=== PATIENT | female | born 1940 | race Caucasian/White ===

== ENCOUNTER 2018-07-17 22:39 | Emergency (ER) | payer MEDICARE, MEDICAID ==
[~2018-07-17] VITALS: Ht 170.2 cm; Wt 81.6 kg
[~2018-07-17 22:39] MED LIST: CLIN1CAP4 PO; LEVO125T7 PO; SACC250C PO
[2018-07-17 23:00] VITALS: BP 104/62
== END 2018-07-18 06:06 | disposition home or self-care (01) ==
LOC: ER 22:42
DX: J20.9 Acute bronchitis, unspecified (principal); E11.22 Type 2 diabetes mellitus with diabetic chronic kidney disease; I12.9 Hypertensive chronic kidney disease with stage 1 through stage 4 chronic kidney disease, or unspecified chronic kidney disease; N18.9 Chronic kidney disease, unspecified; E78.5 Hyperlipidemia, unspecified; I25.2 Old myocardial infarction; Z86.711 Personal history of pulmonary embolism; Z86.39 Personal history of other endocrine, nutritional and metabolic disease
CPT/HCPCS: 71046

== ENCOUNTER 2019-07-01 15:49 | Emergency (ER) | payer MEDICARE, MEDICAID ==
[~2019-07-01] VITALS: Ht 170.2 cm; Wt 81.6 kg
[~2019-07-01 15:49] MED LIST changes: -CLIN1CAP4 PO; +CLIN300C8 PO
[2019-07-01 15:56] VITALS: BP 128/60
== END 2019-07-01 17:41 | disposition home or self-care (01) ==
LOC: EDBD 15:49 → ER 16:04
DX: M24.9 Joint derangement, unspecified (principal); M19.012 Primary osteoarthritis, left shoulder; I12.9 Hypertensive chronic kidney disease with stage 1 through stage 4 chronic kidney disease, or unspecified chronic kidney disease; E11.22 Type 2 diabetes mellitus with diabetic chronic kidney disease; N18.9 Chronic kidney disease, unspecified; I25.10 Atherosclerotic heart disease of native coronary artery without angina pectoris; E78.00 Pure hypercholesterolemia, unspecified; I25.2 Old myocardial infarction; Z79.2 Long term (current) use of antibiotics; Z79.899 Other long term (current) drug therapy; V49.9XXA Car occupant (driver) (passenger) injured in unspecified traffic accident, initial encounter; Y93.89 Activity, other specified; Y92.89 Other specified places as the place of occurrence of the external cause; Y99.8 Other external cause status
CPT/HCPCS: 73030

== ENCOUNTER 2019-07-05 14:35 | Emergency (ER) | payer MEDICARE, MEDICAID ==
[~2019-07-05] VITALS: Ht 170.2 cm; Wt 81.6 kg
[2019-07-05 15:16] VITALS: BP 127/67
[2019-07-05] MEDS ORDERED: traMADol HCL 50 MG TAB PO ONE (16:45)
== END 2019-07-05 17:08 | disposition home or self-care (01) ==
LOC: ER 14:35
DX: G89.29 Other chronic pain (principal); M25.512 Pain in left shoulder; Z76.0 Encounter for issue of repeat prescription; I12.9 Hypertensive chronic kidney disease with stage 1 through stage 4 chronic kidney disease, or unspecified chronic kidney disease; E11.22 Type 2 diabetes mellitus with diabetic chronic kidney disease; N18.9 Chronic kidney disease, unspecified; E78.5 Hyperlipidemia, unspecified; E07.9 Disorder of thyroid, unspecified; I25.10 Atherosclerotic heart disease of native coronary artery without angina pectoris

== ENCOUNTER 2020-02-09 14:34 | Inpatient (IN) | payer MEDICARE, MEDICAID ==
[~2020-02-09] VITALS: Ht 170.2 cm; Wt 80.8 kg
[2020-02-09 17:17] LABS: Basophils # (auto) 0 10 ^3/uL (0-0.2); Basophils % (auto) 0.5 % (0.0-2.0); Eosinophils # (auto) 0.3 10 ^3/uL (0-0.8); Eosinophils % (auto) 4.3 % (0.0-7.0); Hematocrit 41.8 % (36.0-46.0); Hemoglobin 13.7 g/dL (12.2-16.2); Lymphocytes # (auto) 1.8 10 ^3/uL (0.4-5.4); Lymphocytes % (auto) 24.1 % (10.0-50.0); Mean Corpuscular Hemoglobin 30.4 pg (28.0-32.0); Mean Corpuscular Hgb Conc. 32.8 g/dL (32.0-36.0); Mean Corpuscular Volume 92.8 fL (80.0-100.0); Monocytes # (auto) 0.7 10 ^3/uL (0-1.3); Monocytes % (auto) 10.1 % (0.0-12.0); Neutrophils # (auto) 4.5 10 ^3/uL (1.6-8.6); Platelet Count (auto) 118 10^3/uL (140-450); Red Blood Cells 4.51 10^6/uL (4.0-5.20); Red Cell Distribution Width 13.2 % (11.8-14.3); White Blood Cell 7.4 10^3/uL (4.4-10.8)
[2020-02-09 17:33] LABS: BUN/Creatinine Ratio 15.2; Calcium 9.6 mg/dL (8.5-10.1); Potassium 3.4 mmol/L (3.5-5.1)
[2020-02-09 17:35] LABS: Bilirubin, Total 1.3 mg/dL (0.2-1.0); Total Protein 7.6 g/dL (6.4-8.2)
[2020-02-09] MEDS ORDERED: HEPARIN SODIUM (PORCINE) 5000 UNITS/ML 1ML VIAL IV ONE (17:45)
[2020-02-09] MEDS ORDERED: DOCUSATE SOD 100 MG CAP PO PRN ×2 (20:30→23:30)
[2020-02-09] MEDS ORDERED: ACETAMINOPHEN 325 MG TAB PO PRN ×2 (20:30→23:30)
[2020-02-09] MEDS ORDERED: ONDANSETRON HCL 4 MG/2 ML VIAL IV PRN ×2 (20:30→23:30)
[2020-02-09] MEDS ORDERED: HYDROcodone-ACET 5/325MG TAB PO PRN ×2 (20:30→23:30)
[2020-02-09] MEDS ORDERED: MORPHINE SULF INJ 2 MG/ML SYRINGE 1ML IV PRN ×2 (20:30→23:30)
[2020-02-09] MEDS ORDERED: DEXTROSE (50%) 50ML SYRG IV PRN ×2 (20:30→23:30)
[2020-02-09 20:42] LABS: Urine Amorphous Crystal FEW /hpf (None Seen); Urine Bacteria FEW /hpf (None Seen); Urine Blood Negative /uL (Negative); Urine Specific Gravity 1.012 (1.001-1.035); Urine WBC 4 /hpf (0 - 5)
[2020-02-09] MEDS ORDERED: APIXABAN 5 MG TAB PO SCH (22:00)
[2020-02-10] MEDS ORDERED: InsuLIN REG 1unit/0.01ml Soln (100units/ml) SC SCH
[2020-02-10] MEDS ORDERED: ACCU-CHEK COMFORT CURVE STRIP VI SCH
[2020-02-10] MEDS: ACCU-CHEK COMFORT CURVE STRIP VI SCH ×4 (00:10→11:51)
[2020-02-10] MEDS: APIXABAN 5 MG TAB PO SCH ×2 (00:10→09:53)
[2020-02-10] MEDS ORDERED: MULTLIQ38 OR (00:28)
[2020-02-10] MEDS ORDERED: LOVA40TA72 PO (00:28)
[2020-02-10] MEDS: InsuLIN REG 1unit/0.01ml Soln (100units/ml) SC SCH ×6 (03:43→20:00)
[2020-02-10 04:40] VITALS: BP 135/55
[2020-02-10] MEDS: LEVOTHYROXINE SODIUM 50 MCG TAB PO SCH (06:36)
[2020-02-10] MEDS ORDERED: LEVOTHYROXINE SODIUM 50 MCG TAB PO SCH (07:00)
[2020-02-10 10:14] VITALS: BP 112/52
[2020-02-10] MEDS ORDERED: CYCLOBENZAPRINE HCL 10 MG TAB PO PRN (12:00)
[2020-02-10 12:39] VITALS: BP 116/76
[2020-02-10] MEDS ORDERED: IOHEXOL 350 MG/ML 100ML IJ ONE (12:42)
[2020-02-10 17:00] VITALS: BP 126/70
[2020-02-10 22:00] VITALS: BP 132/64
[2020-02-10] MEDS: ENOXAPARIN SOD 80 MG/0.8ML SYRINGE SC SCH (22:11)
[2020-02-11] MEDS: InsuLIN REG 1unit/0.01ml Soln (100units/ml) SC SCH ×6 (04:00→20:15)
[2020-02-11 05:00] VITALS: BP 137/71
[2020-02-11] MEDS: LEVOTHYROXINE SODIUM 50 MCG TAB PO SCH (05:51)
[2020-02-11 09:18] VITALS: BP 126/64
[2020-02-11] MEDS: ENOXAPARIN SOD 80 MG/0.8ML SYRINGE SC SCH ×2 (09:48→22:01)
[2020-02-11 12:53] VITALS: BP 107/58
[2020-02-11 16:23] LABS: INR 1.05 (0.9-1.15); Partial Thromboplastin Time 36.9 sec (23.0-31.2)
[2020-02-11 17:00] VITALS: BP 114/59
[2020-02-11 20:00] VITALS: BP 130/71
[2020-02-11 22:43] VITALS: BP_SYST 130; BP_DIAS 7; BP_DIAS 71
[2020-02-12] MEDS: InsuLIN REG 1unit/0.01ml Soln (100units/ml) SC SCH ×2 (04:00)
[2020-02-12 05:00] VITALS: BP 128/59
[2020-02-12 05:22] VITALS: BP 128/59
[2020-02-12] MEDS: LEVOTHYROXINE SODIUM 50 MCG TAB PO SCH (06:32)
[2020-02-12 08:30] VITALS: BP 113/62
[2020-02-12] MEDS: ENOXAPARIN SOD 80 MG/0.8ML SYRINGE SC SCH ×2 (09:35→21:59)
[2020-02-12] MEDS ORDERED: LIDOCAINE 2%HCL (LOCAL ANESTH.) INJ 20ML MDV ONE (12:58)
[2020-02-12 13:00] VITALS: BP 118/59
[2020-02-12] MEDS ORDERED: fentaNYL CITRATE 100 MCG/2 ML VL ONE (13:08)
[2020-02-12] MEDS ORDERED: MIDAZOLAM HCL 1MG/1ML-2 ML VIAL ONE (13:08)
[2020-02-12 16:09] VITALS: BP 113/61
[2020-02-12 22:00] VITALS: BP 124/71
[2020-02-13 05:00] VITALS: BP 112/51
[2020-02-13] MEDS: LEVOTHYROXINE SODIUM 50 MCG TAB PO SCH (07:44)
[2020-02-13 08:00] VITALS: BP 109/59
[2020-02-13 09:00] VITALS: BP 109/59
[2020-02-13] MEDS: ENOXAPARIN SOD 80 MG/0.8ML SYRINGE SC SCH ×2 (09:41→21:50)
[2020-02-13 13:00] VITALS: BP 123/72
[2020-02-13 16:50] VITALS: BP 120/69
[2020-02-13 22:15] VITALS: BP 111/62
[2020-02-14 05:13] VITALS: BP 111/54
[2020-02-14] MEDS: LEVOTHYROXINE SODIUM 50 MCG TAB PO SCH (06:39)
[2020-02-14 08:00] VITALS: BP 113/60
[2020-02-14 08:31] VITALS: BP 113/60
[2020-02-14] MEDS ORDERED: APIXABAN 5 MG TAB PO ONE (11:00)
[2020-02-14 12:17] VITALS: BP 111/64
[2020-02-14 12:32] VITALS: BP 111/64
[2020-02-15] MEDS ORDERED: APIXABAN 5 MG TAB PO SCH (22:00)
[2020-02-16] MEDS ORDERED: APIXABAN 5 MG TAB PO SCH (22:00)
== END 2020-02-14 15:35 | disposition home or self-care (01) | DRG 252 ==
LOC: ER 14:34 → OVERFLOW 14:35 → ER 21:37 → CENTRAL 21:42
PROVIDERS: ADMIT Hospitalist; ATTEND Family Medicine
PROC: 06H03DZ Insertion of Intraluminal Device into Inferior Vena Cava, Percutaneous Approach (ICD-10-PCS; principal; 2020-02-12)
DX: I82.412 Acute embolism and thrombosis of left femoral vein (principal); I26.99 Other pulmonary embolism without acute cor pulmonale; D68.59 Other primary thrombophilia; J98.11 Atelectasis; M48.54XA Collapsed vertebra, not elsewhere classified, thoracic region, initial encounter for fracture; I25.10 Atherosclerotic heart disease of native coronary artery without angina pectoris; M54.5 Low back pain; E03.9 Hypothyroidism, unspecified; E87.6 Hypokalemia; E78.00 Pure hypercholesterolemia, unspecified; E78.5 Hyperlipidemia, unspecified; G89.29 Other chronic pain; Z86.711 Personal history of pulmonary embolism; Z86.718 Personal history of other venous thrombosis and embolism; W18.30XA Fall on same level, unspecified, initial encounter; Y93.89 Activity, other specified; Y92.89 Other specified places as the place of occurrence of the external cause; Y99.0 Civilian activity done for income or pay; I10 Essential (primary) hypertension
CPT/HCPCS: 36415; 71045; 71275; 72131; 80053; 81001; 82962; 85025; 85610; 85730; 86850; 86900; 86901; 93005; 93970; 96374; 99152; G0378; J1815; J2250

== ENCOUNTER 2020-02-28 23:33 | Emergency (ER) | payer MEDICARE, MEDICAID ==
[~2020-02-28] VITALS: Ht 170.2 cm; Wt 80.3 kg
[~2020-02-28 23:33] MED LIST changes: +LOVA40TA72 PO; +MULTLIQ38 OR
[2020-02-29 00:17] LABS: Basophils # (auto) 0 10 ^3/uL (0-0.2); Basophils % (auto) 0.4 % (0.0-2.0); Eosinophils # (auto) 0.2 10 ^3/uL (0-0.8); Eosinophils % (auto) 3.5 % (0.0-7.0); Hematocrit 40.8 % (36.0-46.0); Hemoglobin 13.6 g/dL (12.2-16.2); Lymphocytes # (auto) 1.8 10 ^3/uL (0.4-5.4); Lymphocytes % (auto) 30.6 % (10.0-50.0); Mean Corpuscular Hemoglobin 30.5 pg (28.0-32.0); Mean Corpuscular Hgb Conc. 33.4 g/dL (32.0-36.0); Mean Corpuscular Volume 91.4 fL (80.0-100.0); Monocytes # (auto) 0.6 10 ^3/uL (0-1.3); Neutrophils # (auto) 3.3 10 ^3/uL (1.6-8.6); Neutrophils % (auto) 55.5 % (37.0-80.0); Nucleated Red Blood Cells % 0.1 %; Platelet Count (auto) 159 10^3/uL (140-450); Red Blood Cells 4.46 10^6/uL (4.0-5.20); Red Cell Distribution Width 13.2 % (11.8-14.3)
[2020-02-29 00:34] LABS: INR 1.08 (0.9-1.15); Partial Thromboplastin Time 29.9 sec (23.0-31.2)
[2020-02-29 00:35] LABS: Alanine Aminotransferase 19 U/L (13-56); Albumin 3.1 g/dL (3.4-5.0); Anion Gap 5 (5-15); Aspartate Aminotransferase 15 U/L (15-37); BUN/Creatinine Ratio 20.3; Blood Urea Nitrogen 16 mg/dL (7-18); Calcium 9.3 mg/dL (8.5-10.1); Carbon Dioxide 27 mmol/L (21-32); Chloride 107 mmol/L (98-107); GFR African American 91 mL/min; GFR Non-African American 75 mL/min; Glucose 103 mg/dL (74-106); Magnesium 1.8 mg/dL (1.6-2.6); Potassium 3.7 mmol/L (3.5-5.1); Sodium 139 mmol/L (136-145)
[2020-02-29 00:40] LABS: Alkaline Phosphatase 98 U/L (45-117); Bilirubin, Total 0.6 mg/dL (0.2-1.0); Total Protein 7.6 g/dL (6.4-8.2)
[2020-02-29 02:31] LABS: Urine Bacteria FEW /hpf (None Seen); Urine Blood Negative /uL (Negative); Urine Specific Gravity 1.013 (1.001-1.035); Urine WBC <1 /hpf (0 - 5)
[2020-02-29 03:00] VITALS: BP 117/51
== END 2020-02-29 04:10 | disposition home or self-care (01) ==
LOC: ER 23:34
DX: R42 Dizziness and giddiness (principal); I25.10 Atherosclerotic heart disease of native coronary artery without angina pectoris; I13.10 Hypertensive heart and chronic kidney disease without heart failure, with stage 1 through stage 4 chronic kidney disease, or unspecified chronic kidney disease; E11.22 Type 2 diabetes mellitus with diabetic chronic kidney disease; N18.9 Chronic kidney disease, unspecified; E78.5 Hyperlipidemia, unspecified; Z79.899 Other long term (current) drug therapy
CPT/HCPCS: 36415; 71045; 80053; 81001; 83735; 83880; 84443; 84484; 85025; 85379; 85610; 85730; 93005

== ENCOUNTER 2020-03-19 21:35 | Emergency (ER) | payer MEDICARE, MEDICAID ==
[~2020-03-19] VITALS: Ht 170.2 cm; Wt 80.3 kg
[2020-03-19] MEDS ORDERED: ONDANSETRON HCL 4 MG/2 ML VIAL IV ONE (23:00)
[2020-03-19] MEDS ORDERED: HYDROmorphone HCL 2 MG/ML VL IV ONE (23:00)
[2020-03-19 23:02] LABS: Basophils # (auto) 0 10 ^3/uL (0-0.2); Basophils % (auto) 0.7 % (0.0-2.0); Eosinophils # (auto) 0.1 10 ^3/uL (0-0.8); Eosinophils % (auto) 2.1 % (0.0-7.0); Hematocrit 41.8 % (36.0-46.0); Lymphocytes # (auto) 1.4 10 ^3/uL (0.4-5.4); Lymphocytes % (auto) 22.3 % (10.0-50.0); Mean Corpuscular Hemoglobin 30.7 pg (28.0-32.0); Mean Corpuscular Hgb Conc. 33.5 g/dL (32.0-36.0); Mean Corpuscular Volume 91.6 fL (80.0-100.0); Monocytes # (auto) 0.6 10 ^3/uL (0-1.3); Monocytes % (auto) 8.9 % (0.0-12.0); Neutrophils # (auto) 4.3 10 ^3/uL (1.6-8.6); Nucleated Red Blood Cells % 0.1 %; Platelet Count (auto) 148 10^3/uL (140-450); Red Blood Cells 4.56 10^6/uL (4.0-5.20); Red Cell Distribution Width 13.6 % (11.8-14.3); White Blood Cell 6.5 10^3/uL (4.4-10.8)
[2020-03-19] MEDS ORDERED: IOHEXOL 350 MG/ML 100ML IJ ONE (23:03)
[2020-03-19 23:18] LABS: INR 1.06 (0.9-1.15); Partial Thromboplastin Time 27.9 sec (23.0-31.2)
[2020-03-19 23:21] LABS: Albumin 3.2 g/dL (3.4-5.0); BUN/Creatinine Ratio 22.3; Calcium 9.6 mg/dL (8.5-10.1); Potassium 3.8 mmol/L (3.5-5.1)
[2020-03-19 23:24] LABS: Bilirubin, Total 0.7 mg/dL (0.2-1.0); Total Protein 7.4 g/dL (6.4-8.2)
[2020-03-20 00:06] LABS: Urine Bacteria FEW /hpf (None Seen); Urine Blood Negative /uL (Negative); Urine Specific Gravity 1.016 (1.001-1.035); Urine WBC 54 /hpf (0 - 5)
[2020-03-20] MEDS ORDERED: SODIUM CHLORIDE 0.9% 1,000 ML IV ONE (03:45)
[2020-03-20] MEDS ORDERED: CEFTRIAXONE SODIUM 2 GM in D5W 5% 50 ML IV ONE (03:45)
[2020-03-20] MEDS ORDERED: cefTRIAXone 1GM/50ML D5W 50 ML IV ONE (03:50)
[2020-03-20 04:50] VITALS: BP 105/45
== END 2020-03-20 05:19 | disposition home or self-care (01) ==
LOC: ER 21:35
DX: N12 Tubulo-interstitial nephritis, not specified as acute or chronic (principal); E11.22 Type 2 diabetes mellitus with diabetic chronic kidney disease; I12.9 Hypertensive chronic kidney disease with stage 1 through stage 4 chronic kidney disease, or unspecified chronic kidney disease; N18.9 Chronic kidney disease, unspecified; I25.10 Atherosclerotic heart disease of native coronary artery without angina pectoris; E78.5 Hyperlipidemia, unspecified; Z86.711 Personal history of pulmonary embolism; Z79.899 Other long term (current) drug therapy; Z79.01 Long term (current) use of anticoagulants
CPT/HCPCS: 36415; 71045; 71275; 80053; 81001; 85025; 85379; 85610; 85730; 93005; 96365; 96375; 99285; J0696; J1170; J2405; J7060; Q9967

== ENCOUNTER 2020-03-23 01:00 | Emergency (ER) | payer MEDICARE, MEDICAID ==
[~2020-03-23] VITALS: Ht 170.2 cm; Wt 80.3 kg
[2020-03-23 01:17] VITALS: BP 127/61
[2020-03-23 02:16] LABS: Basophils # (auto) 0.1 10 ^3/uL (0-0.2); Basophils % (auto) 2.4 % (0.0-2.0); Eosinophils # (auto) 0.2 10 ^3/uL (0-0.8); Eosinophils % (auto) 4.1 % (0.0-7.0); Hematocrit 42.7 % (36.0-46.0); Hemoglobin 14.4 g/dL (12.2-16.2); Lymphocytes # (auto) 1.8 10 ^3/uL (0.4-5.4); Lymphocytes % (auto) 32.8 % (10.0-50.0); Mean Corpuscular Hemoglobin 30.7 pg (28.0-32.0); Mean Corpuscular Hgb Conc. 33.7 g/dL (32.0-36.0); Monocytes # (auto) 0.4 10 ^3/uL (0-1.3); Monocytes % (auto) 6.5 % (0.0-12.0); Neutrophils % (auto) 54.2 % (37.0-80.0); Nucleated Red Blood Cells % 0.2 %; Platelet Count (auto) 169 10^3/uL (140-450); Red Blood Cells 4.69 10^6/uL (4.0-5.20); Red Cell Distribution Width 13.4 % (11.8-14.3); White Blood Cell 5.5 10^3/uL (4.4-10.8)
[2020-03-23 02:38] LABS: Albumin 3.1 g/dL (3.4-5.0); Amylase 81 U/L (25-115); Anion Gap 4 (5-15); Blood Urea Nitrogen 19 mg/dL (7-18); Calcium 9.4 mg/dL (8.5-10.1); Carbon Dioxide 28 mmol/L (21-32); Chloride 106 mmol/L (98-107); Glucose 96 mg/dL (74-106); Lipase 102 U/L (73-393); Magnesium 2.2 mg/dL (1.6-2.6); Potassium 3.9 mmol/L (3.5-5.1); Sodium 138 mmol/L (136-145)
[2020-03-23 02:44] LABS: Alanine Aminotransferase 19 U/L (13-56); Alkaline Phosphatase 92 U/L (45-117); Aspartate Aminotransferase 16 U/L (15-37); Bilirubin, Total 0.5 mg/dL (0.2-1.0); GFR African American 99 mL/min; GFR Non-African American 82 mL/min; Total Protein 7.5 g/dL (6.4-8.2)
[2020-03-23 04:50] LABS: Urine Bacteria NONE SEEN /hpf (None Seen); Urine Blood Negative /uL (Negative); Urine Specific Gravity 1.012 (1.001-1.035); Urine WBC 2 /hpf (0 - 5)
== END 2020-03-23 05:45 | disposition home or self-care (01) ==
LOC: ER 01:03
DX: M54.16 Radiculopathy, lumbar region (principal); M79.18 Myalgia, other site; E11.22 Type 2 diabetes mellitus with diabetic chronic kidney disease; I12.9 Hypertensive chronic kidney disease with stage 1 through stage 4 chronic kidney disease, or unspecified chronic kidney disease; N18.9 Chronic kidney disease, unspecified; I25.10 Atherosclerotic heart disease of native coronary artery without angina pectoris; E78.00 Pure hypercholesterolemia, unspecified; Z87.440 Personal history of urinary (tract) infections; Z79.899 Other long term (current) drug therapy; Z86.711 Personal history of pulmonary embolism
CPT/HCPCS: 36415; 74176; 80053; 81001; 82150; 83605; 83690; 83735; 84484; 85025; 87040

== ENCOUNTER → 2020-07-10 | Outpatient (CLI) | payer MEDICARE, MEDICAID ==
[~2020-07-10] MED LIST changes: +APIX5TAB PO; +CALCTAB62 PO; +CHOL20007 PO; +DENO60SO SC; +LATA0.0019 RIGHTEYE; +LEVO100T8 PO; +ZINC13CR EX
== END | disposition home or self-care (01) ==
LOC: Rad HDHVI 13:15
PROVIDERS: ATTEND Internal Medicine Cardiovascular Disease
DX: R00.2 Palpitations (principal); R06.02 Shortness of breath
CPT/HCPCS: 93306

== ENCOUNTER 2020-07-26 02:54 | Inpatient (IN) | payer MEDICARE, MEDICAID ==
[~2020-07-26] VITALS: Ht 170.2 cm; Wt 84.2 kg
[~2020-07-26 02:54] MED LIST changes: -APIX5TAB PO; -CALCTAB62 PO; -CHOL20007 PO; -DENO60SO SC; -LATA0.0019 RIGHTEYE; -LEVO100T8 PO; -ZINC13CR EX
[2020-07-26 04:14] LABS: Basophils # (auto) 0 10 ^3/uL (0-0.2); Basophils % (auto) 0.4 % (0.0-2.0); Eosinophils # (auto) 0.4 10 ^3/uL (0-0.8); Hematocrit 41.5 % (36.0-46.0); Hemoglobin 14.4 g/dL (12.2-16.2); Lymphocytes # (auto) 2.1 10 ^3/uL (0.4-5.4); Lymphocytes % (auto) 37.4 % (10.0-50.0); Mean Corpuscular Hemoglobin 32.1 pg (28.0-32.0); Mean Corpuscular Hgb Conc. 34.7 g/dL (32.0-36.0); Mean Corpuscular Volume 92.5 fL (80.0-100.0); Monocytes # (auto) 0.5 10 ^3/uL (0-1.3); Monocytes % (auto) 9.6 % (0.0-12.0); Neutrophils # (auto) 2.6 10 ^3/uL (1.6-8.6); Neutrophils % (auto) 45.6 % (37.0-80.0); Nucleated Red Blood Cells % 0.1 %; Red Blood Cells 4.49 10^6/uL (4.0-5.20); Red Cell Distribution Width 14.2 % (11.8-14.3); White Blood Cell 5.6 10^3/uL (4.4-10.8)
[2020-07-26 04:37] LABS: Alanine Aminotransferase 17 U/L (13-56); Albumin 3.1 g/dL (3.4-5.0); Anion Gap 7 (5-15); Aspartate Aminotransferase 16 U/L (15-37); BUN/Creatinine Ratio 23.8; Blood Urea Nitrogen 19 mg/dL (7-18); Calcium 9.2 mg/dL (8.5-10.1); Carbon Dioxide 25 mmol/L (21-32); Chloride 107 mmol/L (98-107); GFR African American 89 mL/min; GFR Non-African American 74 mL/min; Glucose 101 mg/dL (74-106); Magnesium 1.9 mg/dL (1.6-2.6); Potassium 4.4 mmol/L (3.5-5.1); Sodium 139 mmol/L (136-145)
[2020-07-26 04:42] LABS: Alkaline Phosphatase 79 U/L (45-117); Bilirubin, Total 0.5 mg/dL (0.2-1.0)
[2020-07-26 04:46] LABS: Urine Bacteria FEW /hpf (None Seen); Urine Blood Negative /uL (Negative); Urine WBC <1 /hpf (0 - 5)
[2020-07-26 04:52] LABS: INR 1.08 (0.9-1.15); Partial Thromboplastin Time 31.7 sec (23.0-31.2)
[2020-07-26] MEDS ORDERED: MORPHINE SULFATE INJECTION 2 MG/ML SYRG IV PRN (06:45)
[2020-07-26] MEDS ORDERED: MORPHINE SULFATE 4 MG/ML SYR/VIAL IV PRN (06:45)
[2020-07-26] MEDS ORDERED: HYDROcodone-ACET 5/325MG TAB PO PRN (06:45)
[2020-07-26] MEDS ORDERED: NITROGLYCERIN 0.4 MG SL TAB SL PRN (06:45)
[2020-07-26] MEDS ORDERED: DOCUSATE SOD 100 MG CAP PO PRN (06:45)
[2020-07-26] MEDS ORDERED: ACETAMINOPHEN 325 MG TAB PO PRN (06:45)
[2020-07-26] MEDS: LEVOTHYROXINE SODIUM 50 MCG TAB PO SCH (08:10)
[2020-07-26 09:34] LABS: Basophils # (auto) 0 10 ^3/uL (0-0.2); Basophils % (auto) 0.9 % (0.0-2.0); Eosinophils # (auto) 0.4 10 ^3/uL (0-0.8); Eosinophils % (auto) 6.8 % (0.0-7.0); Hematocrit 42.6 % (36.0-46.0); Hemoglobin 14.4 g/dL (12.2-16.2); Lymphocytes % (auto) 38.9 % (10.0-50.0); Mean Corpuscular Hemoglobin 31.3 pg (28.0-32.0); Mean Corpuscular Hgb Conc. 33.8 g/dL (32.0-36.0); Mean Corpuscular Volume 92.5 fL (80.0-100.0); Monocytes # (auto) 0.4 10 ^3/uL (0-1.3); Monocytes % (auto) 8.4 % (0.0-12.0); Neutrophils # (auto) 2.3 10 ^3/uL (1.6-8.6); Nucleated Red Blood Cells % 0.1 %; Red Cell Distribution Width 14.4 % (11.8-14.3); White Blood Cell 5.2 10^3/uL (4.4-10.8)
[2020-07-26] MEDS ORDERED: ENOXAPARIN SOD 40 MG/0.4 ML SYRINGE SC SCH (10:00)
[2020-07-26 10:01] LABS: Cholesterol 181 mg/dL (< 200)
[2020-07-26 10:02] LABS: Albumin 3.3 g/dL (3.4-5.0); Calcium 8.7 mg/dL (8.5-10.1); Potassium 4.2 mmol/L (3.5-5.1)
[2020-07-26 10:04] LABS: HDL Cholesterol 61 mg/dL (40-59); LDL Cholesterol 113 mg/dL (< 100); Triglycerides 63 mg/dL (< 150)
[2020-07-26 10:05] LABS: BUN/Creatinine Ratio 26.5; Bilirubin, Total 0.9 mg/dL (0.2-1.0); Total Protein 7.5 g/dL (6.4-8.2)
[2020-07-26 10:30] VITALS: BP 155/75
[2020-07-26] MEDS: ASCORBIC ACID 500 MG TAB PO SCH ×2 (10:43→22:12)
[2020-07-26] MEDS: FAMOTIDINE (10MG/ML) 2ML VL IV SCH ×2 (10:43→22:12)
[2020-07-26] MEDS: MULTIPLE VITAMIN TAB PO SCH (10:43)
[2020-07-26] MEDS ORDERED: cefTRIAXone 1GM/50ML D5W 50 ML IV ONE (12:15)
[2020-07-26] MEDS ORDERED: APIX5TAB PO (12:15)
[2020-07-26] MEDS: SODIUM CHLOR 0.9% PF (SALINE LOCK) 10ML VIAL/SYR IV SCH ×2 (14:00→22:12)
[2020-07-26 15:28] VITALS: BP 131/66
[2020-07-26 16:29] LABS: Free T4 (Free Thyroxine) 1.22 ng/dL (0.89-1.76)
[2020-07-26 16:30] LABS: Free T3 3.11 pg/mL (2.3-4.2)
[2020-07-26] MEDS ORDERED: LEVO100T8 PO (16:38)
[2020-07-26] MEDS ORDERED: CALCTAB62 PO (16:44)
[2020-07-26] MEDS ORDERED: LATA0.0019 RIGHTEYE (16:45)
[2020-07-26] MEDS ORDERED: DENO60SO SC (16:46)
[2020-07-26] MEDS ORDERED: CHOL20007 PO (16:47)
[2020-07-26] MEDS ORDERED: ZINC13CR EX (16:50)
[2020-07-26 22:00] VITALS: BP 115/60
[2020-07-26] MEDS: APIXABAN 5 MG TAB PO SCH (22:12)
[2020-07-27 05:00] VITALS: BP 101/69
[2020-07-27] MEDS: LEVOTHYROXINE SODIUM 50 MCG TAB PO SCH (06:37)
[2020-07-27] MEDS: SODIUM CHLOR 0.9% PF (SALINE LOCK) 10ML VIAL/SYR IV SCH ×3 (06:37→22:12)
[2020-07-27 06:38] LABS: Basophils # (auto) 0 10 ^3/uL (0-0.2); Basophils % (auto) 0.6 % (0.0-2.0); Eosinophils # (auto) 0.3 10 ^3/uL (0-0.8); Eosinophils % (auto) 6.4 % (0.0-7.0); Hematocrit 41.9 % (36.0-46.0); Hemoglobin 14.4 g/dL (12.2-16.2); Lymphocytes # (auto) 1.8 10 ^3/uL (0.4-5.4); Lymphocytes % (auto) 37.4 % (10.0-50.0); Mean Corpuscular Hemoglobin 31.6 pg (28.0-32.0); Mean Corpuscular Hgb Conc. 34.3 g/dL (32.0-36.0); Mean Corpuscular Volume 92.3 fL (80.0-100.0); Monocytes # (auto) 0.5 10 ^3/uL (0-1.3); Monocytes % (auto) 10.1 % (0.0-12.0); Neutrophils # (auto) 2.2 10 ^3/uL (1.6-8.6); Neutrophils % (auto) 45.5 % (37.0-80.0); Nucleated Red Blood Cells % 0.1 %; Red Blood Cells 4.54 10^6/uL (4.0-5.20); Red Cell Distribution Width 14.3 % (11.8-14.3); White Blood Cell 4.9 10^3/uL (4.4-10.8)
[2020-07-27 06:57] LABS: Albumin 3.2 g/dL (3.4-5.0); BUN/Creatinine Ratio 28.9; Calcium 8.6 mg/dL (8.5-10.1); Potassium 4.2 mmol/L (3.5-5.1)
[2020-07-27 07:00] LABS: Bilirubin, Total 1.1 mg/dL (0.2-1.0); Total Protein 7.1 g/dL (6.4-8.2)
[2020-07-27 08:00] VITALS: BP 129/72
[2020-07-27] MEDS: ASCORBIC ACID 500 MG TAB PO SCH ×2 (09:48→22:12)
[2020-07-27] MEDS: cefTRIAXone 1GM/50ML D5W 50 ML IV SCH (09:48)
[2020-07-27] MEDS: APIXABAN 5 MG TAB PO SCH ×2 (09:48→22:12)
[2020-07-27] MEDS: MULTIPLE VITAMIN TAB PO SCH (09:48)
[2020-07-27] MEDS: FAMOTIDINE (10MG/ML) 2ML VL IV SCH ×2 (09:48→22:12)
[2020-07-27 16:32] VITALS: BP 112/59
[2020-07-27 22:00] VITALS: BP 120/52
[2020-07-27] MEDS ORDERED: LATANOPROST 0.005 % OPTH(EYE) SOL 2.5ML RIGHTEYE SCH (22:00)
[2020-07-27] MEDS: LATANOPROST 0.005 % OPTH(EYE) SOL 2.5ML RIGHTEYE SCH (22:12)
[2020-07-28 05:00] VITALS: BP 117/60
[2020-07-28 07:04] LABS: Basophils # (auto) 0 10 ^3/uL (0-0.2); Basophils % (auto) 0.5 % (0.0-2.0); Eosinophils # (auto) 0.3 10 ^3/uL (0-0.8); Eosinophils % (auto) 6.1 % (0.0-7.0); Hemoglobin 14.8 g/dL (12.2-16.2); Lymphocytes # (auto) 1.9 10 ^3/uL (0.4-5.4); Lymphocytes % (auto) 40.2 % (10.0-50.0); Mean Corpuscular Hemoglobin 31.6 pg (28.0-32.0); Mean Corpuscular Hgb Conc. 34.5 g/dL (32.0-36.0); Mean Corpuscular Volume 91.8 fL (80.0-100.0); Monocytes # (auto) 0.5 10 ^3/uL (0-1.3); Monocytes % (auto) 9.9 % (0.0-12.0); Neutrophils # (auto) 2.1 10 ^3/uL (1.6-8.6); Neutrophils % (auto) 43.3 % (37.0-80.0); Red Blood Cells 4.68 10^6/uL (4.0-5.20); Red Cell Distribution Width 14.4 % (11.8-14.3); White Blood Cell 4.8 10^3/uL (4.4-10.8)
[2020-07-28] MEDS: LEVOTHYROXINE SODIUM 50 MCG TAB PO SCH (07:14)
[2020-07-28] MEDS: SODIUM CHLOR 0.9% PF (SALINE LOCK) 10ML VIAL/SYR IV SCH ×3 (07:14→22:24)
[2020-07-28 07:19] LABS: Potassium 4.3 mmol/L (3.5-5.1)
[2020-07-28 08:00] VITALS: BP 111/61
[2020-07-28] MEDS: MULTIPLE VITAMIN TAB PO SCH (09:25)
[2020-07-28] MEDS: ASCORBIC ACID 500 MG TAB PO SCH ×2 (09:25→22:11)
[2020-07-28] MEDS: cefTRIAXone 1GM/50ML D5W 50 ML IV SCH (09:25)
[2020-07-28] MEDS: FAMOTIDINE (10MG/ML) 2ML VL IV SCH ×2 (09:25→22:11)
[2020-07-28] MEDS: APIXABAN 5 MG TAB PO SCH ×2 (09:25→22:11)
[2020-07-28 16:00] VITALS: BP 144/60
[2020-07-28 22:00] VITALS: BP 112/57
[2020-07-28] MEDS: LATANOPROST 0.005 % OPTH(EYE) SOL 2.5ML RIGHTEYE SCH (22:11)
[2020-07-29 05:00] VITALS: BP 114/67
[2020-07-29] MEDS: SODIUM CHLOR 0.9% PF (SALINE LOCK) 10ML VIAL/SYR IV SCH ×3 (05:19→21:56)
[2020-07-29] MEDS: LEVOTHYROXINE SODIUM 50 MCG TAB PO SCH (06:30)
[2020-07-29 07:28] LABS: Basophils # (auto) 0 10 ^3/uL (0-0.2); Basophils % (auto) 0.7 % (0.0-2.0); Eosinophils # (auto) 0.3 10 ^3/uL (0-0.8); Eosinophils % (auto) 5.6 % (0.0-7.0); Hematocrit 42.2 % (36.0-46.0); Hemoglobin 14.6 g/dL (12.2-16.2); Lymphocytes # (auto) 1.9 10 ^3/uL (0.4-5.4); Lymphocytes % (auto) 40.4 % (10.0-50.0); Mean Corpuscular Hgb Conc. 34.5 g/dL (32.0-36.0); Mean Corpuscular Volume 92.6 fL (80.0-100.0); Monocytes # (auto) 0.5 10 ^3/uL (0-1.3); Monocytes % (auto) 10.9 % (0.0-12.0); Neutrophils % (auto) 42.4 % (37.0-80.0); Nucleated Red Blood Cells % 0.1 %; Red Blood Cells 4.56 10^6/uL (4.0-5.20); Red Cell Distribution Width 14.3 % (11.8-14.3); White Blood Cell 4.7 10^3/uL (4.4-10.8)
[2020-07-29 07:41] LABS: BUN/Creatinine Ratio 34.7; Calcium 8.1 mg/dL (8.5-10.1); Potassium 4.1 mmol/L (3.5-5.1)
[2020-07-29 08:00] VITALS: BP 127/78
[2020-07-29] MEDS: cefTRIAXone 1GM/50ML D5W 50 ML IV SCH (09:28)
[2020-07-29] MEDS: ASCORBIC ACID 500 MG TAB PO SCH ×2 (09:29→21:56)
[2020-07-29] MEDS: FAMOTIDINE (10MG/ML) 2ML VL IV SCH ×2 (09:29→21:57)
[2020-07-29] MEDS: APIXABAN 5 MG TAB PO SCH ×2 (09:29→21:56)
[2020-07-29] MEDS: MULTIPLE VITAMIN TAB PO SCH (09:29)
[2020-07-29 16:00] VITALS: BP 114/71
[2020-07-29 22:00] VITALS: BP 141/66
[2020-07-29] MEDS: LATANOPROST 0.005 % OPTH(EYE) SOL 2.5ML RIGHTEYE SCH (22:00)
[2020-07-30 05:00] VITALS: BP 118/78
[2020-07-30 06:11] LABS: Basophils # (auto) 0.1 10 ^3/uL (0-0.2); Eosinophils # (auto) 0.3 10 ^3/uL (0-0.8); Eosinophils % (auto) 5.7 % (0.0-7.0); Hematocrit 45.3 % (36.0-46.0); Hemoglobin 15.5 g/dL (12.2-16.2); Lymphocytes # (auto) 2.1 10 ^3/uL (0.4-5.4); Lymphocytes % (auto) 41.8 % (10.0-50.0); Mean Corpuscular Hemoglobin 31.6 pg (28.0-32.0); Mean Corpuscular Hgb Conc. 34.2 g/dL (32.0-36.0); Mean Corpuscular Volume 92.6 fL (80.0-100.0); Monocytes # (auto) 0.5 10 ^3/uL (0-1.3); Monocytes % (auto) 9.1 % (0.0-12.0); Neutrophils # (auto) 2.1 10 ^3/uL (1.6-8.6); Neutrophils % (auto) 42.4 % (37.0-80.0); Red Blood Cells 4.89 10^6/uL (4.0-5.20); Red Cell Distribution Width 14.2 % (11.8-14.3)
[2020-07-30] MEDS: LEVOTHYROXINE SODIUM 50 MCG TAB PO SCH (06:17)
[2020-07-30] MEDS: SODIUM CHLOR 0.9% PF (SALINE LOCK) 10ML VIAL/SYR IV SCH ×3 (06:17→21:42)
[2020-07-30 06:23] LABS: INR 1.06 (0.9-1.15)
[2020-07-30 06:33] LABS: Calcium 8.4 mg/dL (8.5-10.1); Potassium 4.3 mmol/L (3.5-5.1)
[2020-07-30 06:36] LABS: BUN/Creatinine Ratio 34.2
[2020-07-30 08:34] VITALS: BP 129/55
[2020-07-30] MEDS: ASCORBIC ACID 500 MG TAB PO SCH ×2 (09:24→21:42)
[2020-07-30] MEDS: MULTIPLE VITAMIN TAB PO SCH (09:25)
[2020-07-30] MEDS: APIXABAN 5 MG TAB PO SCH (09:25)
[2020-07-30] MEDS: FAMOTIDINE (10MG/ML) 2ML VL IV SCH ×2 (09:25→21:42)
[2020-07-30] MEDS ORDERED: VANCOMYCIN 1GM/250ML 250 ML IV ONE (13:15)
[2020-07-30] MEDS ORDERED: fentaNYL CITRATE 100 MCG/2 ML VL ONE (13:49)
[2020-07-30] MEDS ORDERED: IOHEXOL 350 MG/ML 100ML IJ ONE (13:49)
[2020-07-30] MEDS ORDERED: LIDOCAINE 2%HCL (LOCAL ANESTH.) INJ 20ML MDV ONE (13:49)
[2020-07-30] MEDS ORDERED: MIDAZOLAM HCL 2MG/2ML 2ml VIAL (1mg/ml) ONE (13:49)
[2020-07-30] MEDS ORDERED: VANCOMYCIN HCL 1000 MG VL ONE (14:01)
[2020-07-30] MEDS ORDERED: METOCLOPRAMIDE HCL 5MG/ml INJ 2ml VIAL ONE (14:21)
[2020-07-30 16:41] VITALS: BP 121/50
[2020-07-30] MEDS: ceFAZolin 1GM/50ML 50 ML IV SCH ×2 (17:37→22:49)
[2020-07-30] MEDS: LATANOPROST 0.005 % OPTH(EYE) SOL 2.5ML RIGHTEYE SCH (21:42)
[2020-07-30 22:27] VITALS: BP 122/71
[2020-07-31 05:17] VITALS: BP 134/51
[2020-07-31] MEDS: SODIUM CHLOR 0.9% PF (SALINE LOCK) 10ML VIAL/SYR IV SCH (06:00)
[2020-07-31] MEDS: LEVOTHYROXINE SODIUM 50 MCG TAB PO SCH (06:33)
[2020-07-31] MEDS: ceFAZolin 1GM/50ML 50 ML IV SCH (06:33)
[2020-07-31] MEDS: ONDANSETRON HCL 4 MG/2 ML VIAL IV PRN ×2 (06:33→07:03)
[2020-07-31 08:00] VITALS: BP 119/64
[2020-07-31] MEDS: MULTIPLE VITAMIN TAB PO SCH (10:10)
[2020-07-31] MEDS: ASCORBIC ACID 500 MG TAB PO SCH (10:10)
[2020-07-31] MEDS: FAMOTIDINE (10MG/ML) 2ML VL IV SCH (10:11)
[2020-08-02] MEDS ORDERED: APIXABAN 5 MG TAB PO SCH (10:00)
== END 2020-07-31 15:00 | disposition home or self-care (01) | DRG 243 ==
LOC: ER 02:54 → TELE 02:55 → TELE-EAST 10:05
PROVIDERS: ADMIT Nurse Practitioner Family; ATTEND Internal Medicine
PROC: 0JH606Z Insertion of Pacemaker, Dual Chamber into Chest Subcutaneous Tissue and Fascia, Open Approach (ICD-10-PCS; principal; 2020-07-30)
PROC: 02HK3JZ Insertion of Pacemaker Lead into Right Ventricle, Percutaneous Approach (ICD-10-PCS; 2020-07-30)
PROC: 02H63JZ Insertion of Pacemaker Lead into Right Atrium, Percutaneous Approach (ICD-10-PCS; 2020-07-30)
DX: I49.5 Sick sinus syndrome (principal); I13.0 Hypertensive heart and chronic kidney disease with heart failure and stage 1 through stage 4 chronic kidney disease, or unspecified chronic kidney disease; I50.32 Chronic diastolic (congestive) heart failure; Z20.822 Contact with and (suspected) exposure to COVID-19; H40.9 Unspecified glaucoma; I25.10 Atherosclerotic heart disease of native coronary artery without angina pectoris; E11.22 Type 2 diabetes mellitus with diabetic chronic kidney disease; E78.5 Hyperlipidemia, unspecified; E03.9 Hypothyroidism, unspecified; E78.00 Pure hypercholesterolemia, unspecified; M81.0 Age-related osteoporosis without current pathological fracture; N18.9 Chronic kidney disease, unspecified; Z86.711 Personal history of pulmonary embolism; I25.2 Old myocardial infarction; Z90.710 Acquired absence of both cervix and uterus; Z86.718 Personal history of other venous thrombosis and embolism; Z79.899 Other long term (current) drug therapy
CPT/HCPCS: 33208; 36415; 71045; 80048; 80053; 80061; 81001; 83036; 83735; 83880; 84439; 84443; 84481; 84484; 85025; 85379; 85610; 85730; 86850; 86900; 86901; 87086; 87426; 93005; 93970; 96372; 99152; 99153; C1785; G0378; J0690; J0696; J2250; J2405; J3490

== ENCOUNTER 2020-09-30 01:05 | Emergency (ER) | payer MEDICARE, MEDICAID ==
[~2020-09-30] VITALS: Ht 160 cm; Wt 81.6 kg
[~2020-09-30 01:05] MED LIST changes: +APIX5TAB PO; +CALCTAB62 PO; +CHOL20007 PO; -CLIN300C8 PO; +DENO60SO SC; +LATA0.0019 RIGHTEYE; +LEVO100T8 PO; -LEVO125T7 PO; -MULTLIQ38 OR; -SACC250C PO; +ZINC13CR EX
[2020-09-30 01:55] LABS: Basophils # (auto) 0.1 10 ^3/uL (0-0.2); Basophils % (auto) 1.1 % (0.0-2.0); Eosinophils # (auto) 0.3 10 ^3/uL (0-0.8); Eosinophils % (auto) 4.7 % (0.0-7.0); Hematocrit 42.4 % (36.0-46.0); Hemoglobin 14.3 g/dL (12.2-16.2); Lymphocytes # (auto) 2.7 10 ^3/uL (0.4-5.4); Lymphocytes % (auto) 43.8 % (10.0-50.0); Mean Corpuscular Hemoglobin 31.2 pg (28.0-32.0); Mean Corpuscular Hgb Conc. 33.7 g/dL (32.0-36.0); Mean Corpuscular Volume 92.7 fL (80.0-100.0); Monocytes # (auto) 0.5 10 ^3/uL (0-1.3); Monocytes % (auto) 8.5 % (0.0-12.0); Neutrophils # (auto) 2.6 10 ^3/uL (1.6-8.6); Neutrophils % (auto) 41.9 % (37.0-80.0); Nucleated Red Blood Cells % 0.1 %; Red Blood Cells 4.57 10^6/uL (4.0-5.20); Red Cell Distribution Width 14.3 % (11.8-14.3); White Blood Cell 6.2 10^3/uL (4.4-10.8)
[2020-09-30 02:12] LABS: Alanine Aminotransferase 17 U/L (13-56); Albumin 3.3 g/dL (3.4-5.0); Anion Gap 9 (5-15); Aspartate Aminotransferase 22 U/L (15-37); BUN/Creatinine Ratio 31.1; Blood Urea Nitrogen 19 mg/dL (7-18); Calcium 8.6 mg/dL (8.5-10.1); Carbon Dioxide 20 mmol/L (21-32); Chloride 108 mmol/L (98-107); GFR African American 122 mL/min; GFR Non-African American 101 mL/min; Glucose 93 mg/dL (74-106); Potassium 4.2 mmol/L (3.5-5.1); Sodium 137 mmol/L (136-145)
[2020-09-30 02:17] LABS: Alkaline Phosphatase 63 U/L (45-117); Bilirubin, Total 0.7 mg/dL (0.2-1.0); Total Protein 7.3 g/dL (6.4-8.2)
[2020-09-30 08:00] VITALS: BP 120/76
== END 2020-09-30 08:17 | disposition home or self-care (01) ==
LOC: ER 01:05
DX: R00.1 Bradycardia, unspecified (principal); E11.22 Type 2 diabetes mellitus with diabetic chronic kidney disease; I13.0 Hypertensive heart and chronic kidney disease with heart failure and stage 1 through stage 4 chronic kidney disease, or unspecified chronic kidney disease; N18.9 Chronic kidney disease, unspecified; I50.89 Other heart failure; E78.5 Hyperlipidemia, unspecified; I25.2 Old myocardial infarction; Z90.710 Acquired absence of both cervix and uterus
CPT/HCPCS: 36415; 80053; 84484; 85025; 93005

== ENCOUNTER 2020-10-22 19:27 | Inpatient (IN) | payer MEDICARE, MEDICAID ==
[~2020-10-22] VITALS: Ht 160 cm; Wt 84.2 kg
[2020-10-22 20:54] LABS: Basophils # (auto) 0.1 10 ^3/uL (0-0.2); Eosinophils # (auto) 0.2 10 ^3/uL (0-0.8); Eosinophils % (auto) 3.9 % (0.0-7.0); Hematocrit 41.8 % (36.0-46.0); Hemoglobin 14.2 g/dL (12.2-16.2); Lymphocytes # (auto) 2.5 10 ^3/uL (0.4-5.4); Lymphocytes % (auto) 38.9 % (10.0-50.0); Mean Corpuscular Hemoglobin 31.5 pg (28.0-32.0); Mean Corpuscular Volume 92.7 fL (80.0-100.0); Monocytes # (auto) 0.5 10 ^3/uL (0-1.3); Monocytes % (auto) 8.5 % (0.0-12.0); Neutrophils # (auto) 3.1 10 ^3/uL (1.6-8.6); Neutrophils % (auto) 47.7 % (37.0-80.0); Nucleated Red Blood Cells % 0.1 %; Red Blood Cells 4.51 10^6/uL (4.0-5.20); Red Cell Distribution Width 14.2 % (11.8-14.3); White Blood Cell 6.5 10^3/uL (4.4-10.8)
[2020-10-22 21:08] LABS: Alanine Aminotransferase 22 U/L (13-56); Albumin 3.4 g/dL (3.4-5.0); Anion Gap 7 (5-15); Aspartate Aminotransferase 19 U/L (15-37); BUN/Creatinine Ratio 29.3; Blood Urea Nitrogen 22 mg/dL (7-18); Calcium 9.1 mg/dL (8.5-10.1); Carbon Dioxide 26 mmol/L (21-32); Chloride 109 mmol/L (98-107); GFR African American 96 mL/min; GFR Non-African American 79 mL/min; Glucose 79 mg/dL (74-106); INR 1.03 (0.9-1.15); Partial Thromboplastin Time 30.3 sec (23.0-31.2); Potassium 4.3 mmol/L (3.5-5.1); Sodium 142 mmol/L (136-145)
[2020-10-22 21:13] LABS: Alkaline Phosphatase 69 U/L (45-117); Total Protein 7.3 g/dL (6.4-8.2)
[2020-10-23 04:13] LABS: Urine Bacteria NONE SEEN /hpf (None Seen); Urine Blood Negative /uL (Negative); Urine Specific Gravity 1.017 (1.001-1.035); Urine WBC 6 /hpf (0 - 5)
[2020-10-23] MEDS ORDERED: NITROGLYCERIN 0.4 MG SL TAB SL PRN (06:45)
[2020-10-23] MEDS ORDERED: ONDANSETRON HCL 4 MG/2 ML VIAL IV PRN (06:45)
[2020-10-23] MEDS ORDERED: MORPHINE SULFATE INJECTION 2 MG/ML SYRG IV PRN (06:45)
[2020-10-23] MEDS ORDERED: ACETAMINOPHEN 325 MG TAB PO PRN (06:45)
[2020-10-23] MEDS ORDERED: HYDROcodone-ACET 5/325MG TAB PO PRN (06:45)
[2020-10-23] MEDS: LEVOTHYROXINE SODIUM 100 MCG TAB PO SCH (07:45)
[2020-10-23] MEDS: FAMOTIDINE 20 MG TAB PO SCH ×2 (10:16→22:20)
[2020-10-23] MEDS: APIXABAN 5 MG TAB PO SCH ×2 (10:16→22:20)
[2020-10-23 11:30] VITALS: BP 140/58
[2020-10-23 12:36] VITALS: BP 140/58
[2020-10-23 16:52] VITALS: BP 113/54
[2020-10-23 20:00] VITALS: BP 119/71
[2020-10-23 21:44] VITALS: BP 119/71
[2020-10-23] MEDS: ATORVASTATIN 20 MG TAB PO SCH (22:00)
[2020-10-23] MEDS: MEXILETINE HYDROCHLORIDE 150 MG CAP PO SCH (22:20)
[2020-10-24 05:20] VITALS: BP 113/66
[2020-10-24 06:15] LABS: Basophils # (auto) 0 10 ^3/uL (0-0.2); Basophils % (auto) 0.5 % (0.0-2.0); Eosinophils # (auto) 0.2 10 ^3/uL (0-0.8); Eosinophils % (auto) 4.5 % (0.0-7.0); Hematocrit 42.7 % (36.0-46.0); Hemoglobin 14.3 g/dL (12.2-16.2); Lymphocytes # (auto) 1.8 10 ^3/uL (0.4-5.4); Lymphocytes % (auto) 38.3 % (10.0-50.0); Mean Corpuscular Hemoglobin 31.5 pg (28.0-32.0); Mean Corpuscular Hgb Conc. 33.6 g/dL (32.0-36.0); Mean Corpuscular Volume 93.6 fL (80.0-100.0); Monocytes # (auto) 0.4 10 ^3/uL (0-1.3); Monocytes % (auto) 7.6 % (0.0-12.0); Neutrophils # (auto) 2.3 10 ^3/uL (1.6-8.6); Neutrophils % (auto) 49.1 % (37.0-80.0); Nucleated Red Blood Cells % 0.2 %; Red Blood Cells 4.56 10^6/uL (4.0-5.20); Red Cell Distribution Width 14.1 % (11.8-14.3); White Blood Cell 4.7 10^3/uL (4.4-10.8)
[2020-10-24] MEDS: MEXILETINE HYDROCHLORIDE 150 MG CAP PO SCH ×3 (06:17→22:30)
[2020-10-24] MEDS: LEVOTHYROXINE SODIUM 100 MCG TAB PO SCH (06:17)
[2020-10-24 06:47] LABS: Calcium 8.3 mg/dL (8.5-10.1); Potassium 3.9 mmol/L (3.5-5.1)
[2020-10-24 06:50] LABS: BUN/Creatinine Ratio 25.8
[2020-10-24 08:49] VITALS: BP 119/70
[2020-10-24] MEDS: FAMOTIDINE 20 MG TAB PO SCH (09:13)
[2020-10-24] MEDS: APIXABAN 5 MG TAB PO SCH ×2 (09:13→22:30)
[2020-10-24 13:22] VITALS: BP 102/53
[2020-10-24] MEDS: DOCUSATE SOD 100 MG CAP PO PRN (14:47)
[2020-10-24 16:34] VITALS: BP 119/74
[2020-10-24] MEDS ORDERED: LATANOPROST 0.005 % OPTH(EYE) SOL 2.5ML RIGHTEYE SCH (18:00)
[2020-10-24 21:37] VITALS: BP 127/75
[2020-10-24] MEDS: ATORVASTATIN 20 MG TAB PO SCH (22:00)
[2020-10-25 05:03] VITALS: BP 105/58
[2020-10-25] MEDS: MEXILETINE HYDROCHLORIDE 150 MG CAP PO SCH ×2 (06:02→14:00)
[2020-10-25] MEDS ORDERED: LEVOTHYROXINE SODIUM 112 MCG TAB PO SCH (07:00)
[2020-10-25 09:00] VITALS: BP 99/64
[2020-10-25] MEDS: APIXABAN 5 MG TAB PO SCH (09:17)
[2020-10-25] MEDS: DOCUSATE SOD 100 MG CAP PO PRN (09:21)
[2020-10-25] MEDS ORDERED: FAMOTIDINE 20 MG TAB PO SCH (10:00)
[2020-10-25 13:00] VITALS: BP 145/88
== END 2020-10-25 14:08 | disposition home or self-care (01) | DRG 308 ==
LOC: ER 19:30 → TELE-WESTW 19:56 → TELE 10-23 06:33 → TELE-WESTW 10-23 11:06
PROVIDERS: ADMIT Nurse Practitioner; ATTEND Family Medicine
PROC: 4B02XSZ Measurement of Cardiac Pacemaker, External Approach (ICD-10-PCS; principal; 2020-10-24)
DX: I49.5 Sick sinus syndrome (principal); I50.31 Acute diastolic (congestive) heart failure; I13.0 Hypertensive heart and chronic kidney disease with heart failure and stage 1 through stage 4 chronic kidney disease, or unspecified chronic kidney disease; E03.9 Hypothyroidism, unspecified; E78.5 Hyperlipidemia, unspecified; I49.9 Cardiac arrhythmia, unspecified; E11.22 Type 2 diabetes mellitus with diabetic chronic kidney disease; E78.00 Pure hypercholesterolemia, unspecified; I25.10 Atherosclerotic heart disease of native coronary artery without angina pectoris; I25.2 Old myocardial infarction; N18.9 Chronic kidney disease, unspecified; Y71.2 Prosthetic and other implants, materials and accessory cardiovascular devices associated with adverse incidents; Z79.01 Long term (current) use of anticoagulants; Z79.890 Hormone replacement therapy; Z83.3 Family history of diabetes mellitus; Z86.711 Personal history of pulmonary embolism; Z90.710 Acquired absence of both cervix and uterus; Z95.0 Presence of cardiac pacemaker; Z86.718 Personal history of other venous thrombosis and embolism; Z20.822 Contact with and (suspected) exposure to COVID-19; Z80.8 Family history of malignant neoplasm of other organs or systems
CPT/HCPCS: 36415; 71045; 80048; 80053; 81001; 84443; 84484; 85025; 85610; 85730; 87426; 93005; G0378

== ENCOUNTER → 2020-11-06 | Outpatient (CLI) | payer MEDICARE, MEDICAID ==
[2020-11-06 16:03] LABS: Basophils # (auto) 0 10 ^3/uL (0-0.2); Basophils % (auto) 0.5 % (0.0-2.0); Eosinophils # (auto) 0.2 10 ^3/uL (0-0.8); Eosinophils % (auto) 2.9 % (0.0-7.0); Hematocrit 44.1 % (36.0-46.0); Hemoglobin 15.1 g/dL (12.2-16.2); Lymphocytes # (auto) 2.1 10 ^3/uL (0.4-5.4); Lymphocytes % (auto) 29.1 % (10.0-50.0); Mean Corpuscular Hemoglobin 32.2 pg (28.0-32.0); Mean Corpuscular Hgb Conc. 34.4 g/dL (32.0-36.0); Mean Corpuscular Volume 93.8 fL (80.0-100.0); Monocytes # (auto) 0.6 10 ^3/uL (0-1.3); Monocytes % (auto) 8.3 % (0.0-12.0); Neutrophils # (auto) 4.2 10 ^3/uL (1.6-8.6); Neutrophils % (auto) 59.2 % (37.0-80.0); Nucleated Red Blood Cells % 0.2 %; Platelet Count (auto) 136 10^3/uL (140-450); Red Cell Distribution Width 14.3 % (11.8-14.3); White Blood Cell 7.1 10^3/uL (4.4-10.8)
[2020-11-06 16:06] LABS: BUN/Creatinine Ratio 17.4; Calcium 9.5 mg/dL (8.5-10.1); Potassium 4.7 mmol/L (3.5-5.1)
== END | disposition home or self-care (01) ==
LOC: LAB 12:31
PROVIDERS: ATTEND Internal Medicine Cardiovascular Disease
DX: D64.9 Anemia, unspecified (principal); E03.9 Hypothyroidism, unspecified; I10 Essential (primary) hypertension
CPT/HCPCS: 36415; 80048; 84443; 85025

== ENCOUNTER 2020-12-19 23:08 | Emergency (ER) | payer MEDICARE, MEDICAID ==
[~2020-12-19] VITALS: Ht 157.5 cm; Wt 82.6 kg
[2020-12-20 01:04] LABS: Basophils # (auto) 0.1 10 ^3/uL (0-0.2); Eosinophils # (auto) 0.2 10 ^3/uL (0-0.8); Eosinophils % (auto) 4.2 % (0.0-7.0); Hematocrit 42.9 % (36.0-46.0); Hemoglobin 14.8 g/dL (12.2-16.2); Lymphocytes # (auto) 2.2 10 ^3/uL (0.4-5.4); Mean Corpuscular Hemoglobin 32.7 pg (28.0-32.0); Mean Corpuscular Hgb Conc. 34.6 g/dL (32.0-36.0); Mean Corpuscular Volume 94.5 fL (80.0-100.0); Monocytes # (auto) 0.6 10 ^3/uL (0-1.3); Monocytes % (auto) 10.9 % (0.0-12.0); Neutrophils # (auto) 2.8 10 ^3/uL (1.6-8.6); Neutrophils % (auto) 46.9 % (37.0-80.0); Nucleated Red Blood Cells % 0.2 %; Platelet Count (auto) 129 10^3/uL (140-450); Red Blood Cells 4.54 10^6/uL (4.0-5.20); Red Cell Distribution Width 14.5 % (11.8-14.3)
[2020-12-20 01:18] LABS: INR 1.03 (0.9-1.15); Partial Thromboplastin Time 30.3 sec (23.0-31.2)
[2020-12-20 01:23] LABS: Calcium 8.4 mg/dL (8.5-10.1); Potassium 4.1 mmol/L (3.5-5.1)
[2020-12-20 01:25] LABS: BUN/Creatinine Ratio 18.1
[2020-12-20 01:27] LABS: Bilirubin, Total 0.5 mg/dL (0.2-1.0); Total Protein 6.9 g/dL (6.4-8.2)
[2020-12-20 03:00] VITALS: BP 134/66
== END 2020-12-20 18:15 | disposition home or self-care (01) ==
LOC: ER 23:08
DX: R60.9 Edema, unspecified (principal); E11.22 Type 2 diabetes mellitus with diabetic chronic kidney disease; I13.0 Hypertensive heart and chronic kidney disease with heart failure and stage 1 through stage 4 chronic kidney disease, or unspecified chronic kidney disease; N18.9 Chronic kidney disease, unspecified; I50.9 Heart failure, unspecified; E78.5 Hyperlipidemia, unspecified; Z90.710 Acquired absence of both cervix and uterus; Z86.718 Personal history of other venous thrombosis and embolism
CPT/HCPCS: 36415; 80053; 85025; 85049; 85610; 85730; 93005; 93971

== ENCOUNTER → 2021-10-15 | Outpatient (CLI) | payer MEDICARE, MEDICAID ==
[~2021-10-15] VITALS: Ht 160 cm; Wt 81.6 kg
[~2021-10-15] MED LIST changes: +ADENOSINE 69 MG in GIVE UN-DILUTED 0 ML IV ONE; +ADENOSINE 90 MG/30 ML INJ IV ONE
[2021-10-15 16:47] LABS: Basophils # (auto) 0 10 ^3/uL (0-0.2); Basophils % (auto) 0.7 % (0.0-2.0); Eosinophils # (auto) 0.3 10 ^3/uL (0-0.8); Hematocrit 41.2 % (36.0-46.0); Lymphocytes # (auto) 1.9 10 ^3/uL (0.4-5.4); Lymphocytes % (auto) 38.1 % (10.0-50.0); Mean Corpuscular Hemoglobin 31.5 pg (28.0-32.0); Mean Corpuscular Volume 92.8 fL (80.0-100.0); Monocytes # (auto) 0.4 10 ^3/uL (0-1.3); Monocytes % (auto) 8.8 % (0.0-12.0); Neutrophils # (auto) 2.4 10 ^3/uL (1.6-8.6); Neutrophils % (auto) 47.4 % (37.0-80.0); Nucleated Red Blood Cells % 0.1 %; Red Blood Cells 4.44 10^6/uL (4.0-5.20); Red Cell Distribution Width 13.3 % (11.8-14.3); White Blood Cell 5.1 10^3/uL (4.4-10.8)
[2021-10-15 16:48] LABS: Free T4 (Free Thyroxine) 1.31 ng/dL (0.89-1.76)
[2021-10-15 16:52] LABS: Urine Blood Negative /uL (Negative); Urine Specific Gravity 1.028 (1.001-1.035)
[2021-10-15 17:05] LABS: Potassium 4.2 mmol/L (3.5-5.1)
[2021-10-15 17:34] LABS: BUN/Creatinine Ratio 21.1
[2021-10-15 17:35] LABS: Albumin 3.6 g/dL (3.4-5.0); Bilirubin, Total 0.9 mg/dL (0.2-1.0); Calcium 9.2 mg/dL (8.5-10.1); Total Protein 7.7 g/dL (6.4-8.2)
== END | disposition home or self-care (01) ==
LOC: Rad HDHVI 12:46
PROVIDERS: ATTEND Internal Medicine Cardiovascular Disease
DX: D51.3 Other dietary vitamin B12 deficiency anemia (principal); D64.9 Anemia, unspecified; E11.9 Type 2 diabetes mellitus without complications; E55.9 Vitamin D deficiency, unspecified; I10 Essential (primary) hypertension; R00.2 Palpitations; R53.1 Weakness; R30.0 Dysuria; R06.02 Shortness of breath; R06.00 Dyspnea, unspecified; R07.89 Other chest pain; I27.21 Secondary pulmonary arterial hypertension; I47.2 Ventricular tachycardia; I47.9 Paroxysmal tachycardia, unspecified
CPT/HCPCS: 36415; 78452; 80053; 80061; 81003; 82306; 82607; 83036; 83880; 84439; 84443; 85025; 93005; 96374; 96375; A9500; J0153

== ENCOUNTER → 2022-01-05 | Outpatient (CLI) | payer MEDICARE, MEDICAID ==
[~2022-01-05] MED LIST changes: -ADENOSINE 69 MG in GIVE UN-DILUTED 0 ML IV ONE; -ADENOSINE 90 MG/30 ML INJ IV ONE; +FURO1TAB33 PO; +LEVO112T2 PO; +POTA1TAB61 PO
[2022-01-05 08:30] VITALS: BP 142/65
[2022-01-05 08:50] VITALS: BP 133/63
[2022-01-05 12:17] LABS: BUN/Creatinine Ratio 20.3; Calcium 8.9 mg/dL (8.5-10.1); Potassium 3.9 mmol/L (3.5-5.1)
[2022-01-05 12:18] LABS: Basophils # (auto) 0 10 ^3/uL (0-0.2); Basophils % (auto) 0.8 % (0.0-2.0); Eosinophils # (auto) 0.3 10 ^3/uL (0-0.8); Eosinophils % (auto) 5.5 % (0.0-7.0); Hematocrit 43.5 % (36.0-46.0); Hemoglobin 14.4 g/dL (12.2-16.2); Lymphocytes # (auto) 1.8 10 ^3/uL (0.4-5.4); Lymphocytes % (auto) 38.6 % (10.0-50.0); Mean Corpuscular Hemoglobin 30.9 pg (28.0-32.0); Mean Corpuscular Volume 93.6 fL (80.0-100.0); Monocytes # (auto) 0.3 10 ^3/uL (0-1.3); Monocytes % (auto) 7.4 % (0.0-12.0); Neutrophils # (auto) 2.2 10 ^3/uL (1.6-8.6); Neutrophils % (auto) 47.7 % (37.0-80.0); Nucleated Red Blood Cells % 0.3 %; Red Blood Cells 4.65 10^6/uL (4.0-5.20); Red Cell Distribution Width 14.1 % (11.8-14.3); White Blood Cell 4.7 10^3/uL (4.4-10.8)
[2022-01-05 12:45] LABS: INR 1.03 (0.9-1.15); Partial Thromboplastin Time 34.3 sec (24.6-33.4)
== END | disposition home or self-care (01) ==
LOC: Rad HDHVI 08:12
PROVIDERS: ATTEND Internal Medicine Cardiovascular Disease
DX: Z01.812 Encounter for preprocedural laboratory examination (principal); I10 Essential (primary) hypertension; R06.02 Shortness of breath; R07.89 Other chest pain; Z20.822 Contact with and (suspected) exposure to COVID-19
CPT/HCPCS: 36415; 71046; 80048; 85025; 85610; 85730; C9803; G0463; U0003

== ENCOUNTER 2022-01-08 06:54 | Day surgery (SDC) | payer MEDICARE, MEDICAID ==
[~2022-01-08] VITALS: Ht 160 cm; Wt 82.6 kg
[~2022-01-08 06:54] MED LIST changes: -LEVO100T8 PO
[2022-01-08] MEDS ORDERED: LIDOCAINE 2%HCL (LOCAL ANESTH.) INJ 10ml MDV ONE (08:23)
[2022-01-08] MEDS ORDERED: IODIXANOL 320MG/ML 100ML BTL IV ONE (08:23)
[2022-01-08] MEDS ORDERED: ANGIOMAX 250 MG VIAL IV ONE (08:27)
[2022-01-08] MEDS ORDERED: SODIUM CHL 0.9% 0 ML ONE (08:28)
[2022-01-08] MEDS ORDERED: fentaNYL CITRATE 100 MCG/2 ML VL ONE (08:28)
[2022-01-08] MEDS ORDERED: MIDAZOLAM HCL 2MG/2ML 2ml VIAL (1mg/ml) ONE (08:28)
== END 2022-01-08 11:30 | disposition home or self-care (01) ==
LOC: CATH 06:54
PROVIDERS: ATTEND Internal Medicine Cardiovascular Disease
DX: R94.39 Abnormal result of other cardiovascular function study (principal); I25.10 Atherosclerotic heart disease of native coronary artery without angina pectoris; I11.0 Hypertensive heart disease with heart failure; I50.9 Heart failure, unspecified; E78.5 Hyperlipidemia, unspecified; I25.2 Old myocardial infarction; F32.A Depression, unspecified; Z82.49 Family history of ischemic heart disease and other diseases of the circulatory system; Z90.710 Acquired absence of both cervix and uterus; Z83.3 Family history of diabetes mellitus; Z80.8 Family history of malignant neoplasm of other organs or systems; Z81.8 Family history of other mental and behavioral disorders; Z20.822 Contact with and (suspected) exposure to COVID-19
CPT/HCPCS: 93458; C1760; C1769; C1894; J1644; J2001; J2250; J3010; Q9967; U0003; 99152

== ENCOUNTER 2022-09-11 00:11 | Emergency (ER) | payer MEDICARE, MEDICAID ==
[~2022-09-11] VITALS: Ht 160 cm; Wt 80.8 kg
[2022-09-11 02:49] VITALS: BP 144/69
== END 2022-09-11 02:53 | disposition home or self-care (01) ==
LOC: ER 00:11
DX: S00.03XA Contusion of scalp, initial encounter (principal); I13.0 Hypertensive heart and chronic kidney disease with heart failure and stage 1 through stage 4 chronic kidney disease, or unspecified chronic kidney disease; E11.22 Type 2 diabetes mellitus with diabetic chronic kidney disease; N18.9 Chronic kidney disease, unspecified; I50.9 Heart failure, unspecified; I48.91 Unspecified atrial fibrillation; I25.10 Atherosclerotic heart disease of native coronary artery without angina pectoris; I25.2 Old myocardial infarction; E78.5 Hyperlipidemia, unspecified; E03.9 Hypothyroidism, unspecified; Z95.0 Presence of cardiac pacemaker; Z90.710 Acquired absence of both cervix and uterus; Z79.899 Other long term (current) drug therapy; W22.8XXA Striking against or struck by other objects, initial encounter; Y93.89 Activity, other specified; Y92.89 Other specified places as the place of occurrence of the external cause; Y99.8 Other external cause status
CPT/HCPCS: 70450

== ENCOUNTER 2023-07-26 09:46 | Emergency (ER) | payer MEDICARE, MEDICAID ==
[~2023-07-26] VITALS: Ht 160 cm; Wt 80.0 kg
[~2023-07-26 09:46] MED LIST changes: -LATA0.0019 RIGHTEYE; +LATA0.008 RIGHTEYE
[2023-07-26 10:24] VITALS: BP 119/74; RESP 18; TEMP 98; O2SAT 94
[2023-07-26 11:13] VITALS: PULSE 76
[2023-07-26 11:26] LABS: Basophils # (auto) 0 10 ^3/uL (0-0.2); Eosinophils # (auto) 0.2 10 ^3/uL (0-0.8); Hematocrit 41.6 % (36.0-46.0); Hemoglobin 13.7 g/dL (12.2-16.2); Lymphocytes # (auto) 1.8 10 ^3/uL (0.4-5.4); Lymphocytes % (auto) 38.2 % (10.0-50.0); Mean Corpuscular Hemoglobin 31.2 pg (28.0-32.0); Mean Corpuscular Volume 94.3 fL (80.0-100.0); Monocytes # (auto) 0.3 10 ^3/uL (0-1.3); Monocytes % (auto) 6.7 % (0.0-12.0); Neutrophils # (auto) 2.3 10 ^3/uL (1.6-8.6); Neutrophils % (auto) 49.1 % (37.0-80.0); Nucleated Red Blood Cells % 0.1 %; Red Blood Cells 4.41 10^6/uL (4.0-5.20); Red Cell Distribution Width 14.1 % (11.8-14.3); White Blood Cell 4.6 10^3/uL (4.4-10.8)
[2023-07-26 11:46] LABS: Alanine Aminotransferase 14 U/L (7-40); Albumin 4.2 g/dL (3.2-4.8); Alkaline Phosphatase 44 U/L (46-116); Anion Gap 6 (5-15); Aspartate Aminotransferase 22 U/L (13-40); BUN/Creatinine Ratio 11.6 (10.0-20.0); Blood Urea Nitrogen 8 mg/dL (9-23); Calcium 9.2 mg/dL (8.7-10.4); Carbon Dioxide 26 mmol/L (20-30); Chloride 109 mmol/L (98-107); Glucose 90 mg/dL (74-106); Potassium 4.1 mmol/L (3.5-5.1); Sodium 141 mmol/L (136-145)
[2023-07-26 11:47] LABS: Bilirubin, Total 0.9 mg/dL (0.2-1.0); Total Protein 7.1 g/dL (5.7-8.2)
[2023-07-26] MEDS ORDERED: BENZ100C97 PO ×3 (12:29→12:52)
[2023-07-26] MEDS ORDERED: AUG875T PO ×3 (12:29→12:52)
[2023-07-26] MEDS ORDERED: cefTRIAXone SOD 500 MG VL IM ONE (12:30)
== END 2023-07-26 12:54 | disposition home or self-care (01) ==
LOC: ER 09:46
DX: J40 Bronchitis, not specified as acute or chronic (principal); E11.22 Type 2 diabetes mellitus with diabetic chronic kidney disease; I13.0 Hypertensive heart and chronic kidney disease with heart failure and stage 1 through stage 4 chronic kidney disease, or unspecified chronic kidney disease; N18.9 Chronic kidney disease, unspecified; I50.9 Heart failure, unspecified; E78.5 Hyperlipidemia, unspecified; Z90.710 Acquired absence of both cervix and uterus
CPT/HCPCS: 36415; 71046; 80053; 83735; 83880; 84484; 85025; 85379; 96372; 99284; J0696

== ENCOUNTER → 2023-09-06 | Outpatient (CLI) | payer MEDICARE, MEDICAID ==
[~2023-09-06] MED LIST changes: +AUG875T PO; +BENZ100C97 PO
[2023-09-06 14:08] VITALS: BP 146/82; PULSE 91; RESP 18; O2SAT 97
[2023-09-06 15:10] VITALS: BP 118/70; PULSE 79; RESP 18; O2SAT 97
[2023-09-06] MEDS: BUMETANIDE 2.5mg/10ml (0.25 mg/ml) INJ IV ONE (15:10)
[2023-09-06] MEDS: POTASSIUM CHL 20 Meq TABLET PO ONE (15:10)
[2023-09-06] MEDS: POTASSIUM CHL 10 Meq TABLET PO ONE ×2 (15:30→15:40)
[2023-09-06] MEDS: BUMETANIDE 1mg/4ml VIAL (0.25mg/ml) ONE (15:30)
== END | disposition home or self-care (01) ==
LOC: CHF HDHVI 15:26
PROVIDERS: ATTEND Internal Medicine Cardiovascular Disease
DX: R60.0 Localized edema (principal)
CPT/HCPCS: 96374; G0463; J3490

== ENCOUNTER → 2024-02-11 | Outpatient (CLI) | payer MEDICARE, MEDICAID ==
[~2024-02-11] MED LIST changes: +POTA-215 PO; -POTA1TAB61 PO
== END | disposition home or self-care (01) ==
LOC: Rad HDHVI 09:56
PROVIDERS: ATTEND Internal Medicine Cardiovascular Disease
DX: M54.50 Low back pain, unspecified (principal)
CPT/HCPCS: 72131; 77078

== ENCOUNTER 2024-03-25 14:31 | Inpatient (IN) | payer MEDICARE, MEDICAID ==
[~2024-03-25] VITALS: Ht 160 cm; Wt 86.2 kg
[~2024-03-25 14:31] MED LIST changes: +FURO40TA4 PO
[2024-03-25 15:28] LABS: Basophils # (auto) 0.1 10 ^3/uL (0-0.2); Eosinophils # (auto) 0.2 10 ^3/uL (0-0.8); Eosinophils % (auto) 3.9 % (0.0-7.0); Hematocrit 42.6 % (36.0-46.0); Hemoglobin 14.7 g/dL (12.2-16.2); Lymphocytes # (auto) 1.6 10 ^3/uL (0.4-5.4); Lymphocytes % (auto) 31.2 % (10.0-50.0); Mean Corpuscular Hemoglobin 32.8 pg (28.0-32.0); Mean Corpuscular Hgb Conc. 34.6 g/dL (32.0-36.0); Monocytes # (auto) 0.4 10 ^3/uL (0-1.3); Monocytes % (auto) 8.5 % (0.0-12.0); Neutrophils # (auto) 2.9 10 ^3/uL (1.6-8.6); Neutrophils % (auto) 55.4 % (37.0-80.0); Nucleated Red Blood Cells % 0.1 %; Platelet Count (auto) 150 10^3/uL (140-450); Red Blood Cells 4.49 10^6/uL (4.0-5.20); Red Cell Distribution Width 14.2 % (11.8-14.3); White Blood Cell 5.2 10^3/uL (4.4-10.8)
[2024-03-25 15:29] LABS: Anion Gap 7 (5-15); Carbon Dioxide 25 mmol/L (20-31); Chloride 109 mmol/L (98-107); Sodium 141 mmol/L (136-145)
[2024-03-25 15:35] LABS: BUN/Creatinine Ratio 17.6 (10.0-20.0); Blood Urea Nitrogen 15 mg/dL (9-23); Glucose 133 mg/dL (74-106)
[2024-03-25 15:45] VITALS: PULSE 68; RESP 22; O2SAT 94
[2024-03-25] MEDS: HYDROcodone-ACET 5/325MG TAB PO ONE (15:57)
[2024-03-25] MEDS ORDERED: HYDROcodone-ACET 5/325MG TAB PO PRN (19:30)
[2024-03-25] MEDS ORDERED: ONDANSETRON HCL 4 MG/2 ML VIAL IV PRN (19:30)
[2024-03-25] MEDS ORDERED: POTA-180 PO (19:44)
[2024-03-25] MEDS ORDERED: LEVO100T8 PO (19:44)
[2024-03-25 20:00] VITALS: PULSE 79; RESP 17; O2SAT 95
[2024-03-25] MEDS: cefTRIAXone 1GM/50ML D5W 50 ML IV ONE (20:03)
[2024-03-25 21:46] VITALS: BP 123/71; PULSE 71; RESP 16; TEMP 98
[2024-03-25 22:03] LABS: Urine Bacteria FEW /hpf (None Seen); Urine Blood Negative /uL (Negative); Urine Clarity Turbid (Clear); Urine Color Yellow (Yellow); Urine Mucus FEW (None Seen); Urine Protein, UAD Negative (Negative); Urine Specific Gravity 1.017 (1.001-1.035); Urine Urobilinogen Normal (Negative); Urine WBC 19 /hpf (0 - 5); Urine pH 6.5 (5.0-9.0)
[2024-03-25] MEDS ORDERED: MULT-733 OR (22:21)
[2024-03-25] MEDS ORDERED: MULT1PAK PO (22:23)
[2024-03-25 22:27] VITALS: BP 123/71; PULSE 71; RESP 16; TEMP 98; O2SAT 92
[2024-03-26] VITALS (7 sets, daily range): BP systolic 101–135; BP diastolic 55–73; PULSE 67–77; RESP 16–20; TEMP 97.4–98; O2SAT 91–96
[2024-03-26] MEDS: APIXABAN 5 MG TAB PO SCH (00:15)
[2024-03-26] MEDS: ATORVASTATIN 20 MG TAB PO SCH (00:21)
[2024-03-26] MEDS: LEVOTHYROXINE SODIUM 100 MCG TAB PO SCH (05:26)
[2024-03-26 06:18] LABS: Basophils # (auto) 0 10 ^3/uL (0-0.2); Basophils % (auto) 0.7 % (0.0-2.0); Eosinophils # (auto) 0.2 10 ^3/uL (0-0.8); Eosinophils % (auto) 3.3 % (0.0-7.0); Hematocrit 39.1 % (36.0-46.0); Hemoglobin 13.7 g/dL (12.2-16.2); Lymphocytes # (auto) 1.8 10 ^3/uL (0.4-5.4); Lymphocytes % (auto) 34.3 % (10.0-50.0); Mean Corpuscular Hemoglobin 33.2 pg (28.0-32.0); Mean Corpuscular Hgb Conc. 34.9 g/dL (32.0-36.0); Mean Corpuscular Volume 95.1 fL (80.0-100.0); Monocytes # (auto) 0.5 10 ^3/uL (0-1.3); Monocytes % (auto) 9.2 % (0.0-12.0); Neutrophils # (auto) 2.8 10 ^3/uL (1.6-8.6); Neutrophils % (auto) 52.5 % (37.0-80.0); Nucleated Red Blood Cells % 0.2 %; Platelet Count (auto) 135 10^3/uL (140-450); Red Blood Cells 4.12 10^6/uL (4.0-5.20); White Blood Cell 5.4 10^3/uL (4.4-10.8)
[2024-03-26 06:29] LABS: Chloride 109 mmol/L (98-107); Potassium 3.8 mmol/L (3.5-5.1); Sodium 140 mmol/L (136-145)
[2024-03-26 06:30] LABS: Anion Gap 7 (5-15); Calcium 9.1 mg/dL (8.7-10.4); Carbon Dioxide 24 mmol/L (20-31)
[2024-03-26 06:35] LABS: BUN/Creatinine Ratio 16.4 (10.0-20.0); Blood Urea Nitrogen 11 mg/dL (9-23); Glucose 89 mg/dL (74-106)
[2024-03-26] MEDS: FUROSEMIDE 40 MG/4 ML VIAL IV SCH (09:44)
[2024-03-26] MEDS: POTASSIUM CHL 20 Meq TABLET PO SCH (09:45)
[2024-03-26] MEDS: cefTRIAXone 1GM/50ML D5W 50 ML IV ONE (13:20)
[2024-03-27 01:00] VITALS: BP 103/68; PULSE 71; RESP 16; TEMP 97.8; O2SAT 91
[2024-03-27 05:00] VITALS: BP 114/64; PULSE 69; RESP 17; TEMP 97.9; O2SAT 94
[2024-03-27 07:23] LABS: Anion Gap 9 (5-15); Carbon Dioxide 23 mmol/L (20-31); Chloride 107 mmol/L (98-107); Potassium 3.7 mmol/L (3.5-5.1); Sodium 139 mmol/L (136-145)
[2024-03-27 07:25] LABS: Calcium 9.4 mg/dL (8.7-10.4)
[2024-03-27 07:29] LABS: Blood Urea Nitrogen 15 mg/dL (9-23); Glucose 109 mg/dL (74-106)
[2024-03-27 08:00] VITALS: BP 97/59; PULSE 67; RESP 18; TEMP 97.5; O2SAT 92
[2024-03-27] MEDS: cefTRIAXone 1GM/50ML D5W 50 ML IV SCH (09:29)
[2024-03-27 11:52] LABS: Free T4 (Free Thyroxine) 1.04 ng/dL (0.89-1.76); T3 Total 0.8 ng/mL (0.60-1.81)
[2024-03-27 12:00] VITALS: BP 100/60; PULSE 71; RESP 18; TEMP 97.9; O2SAT 93
[2024-03-27 16:00] VITALS: BP 100/58; PULSE 72; RESP 18; TEMP 97.6; O2SAT 91
[2024-03-27] MEDS: FUROSEMIDE 40 MG/4 ML VIAL IV SCH (17:36)
[2024-03-27] MEDS: SPIRONOLACTONE 25 MG TAB PO SCH (17:36)
[2024-03-27 21:00] VITALS: BP 120/64; PULSE 69; RESP 17; TEMP 98; O2SAT 92
[2024-03-28 01:00] VITALS: BP 126/73; PULSE 69; RESP 17; TEMP 98.6; O2SAT 95
[2024-03-28 05:00] VITALS: BP 117/62; PULSE 72; RESP 18; TEMP 98.3; O2SAT 92
[2024-03-28 08:00] VITALS: PULSE 72; RESP 18; O2SAT 91
[2024-03-28 08:09] LABS: Calcium 9.9 mg/dL (8.7-10.4); Chloride 103 mmol/L (98-107); Potassium 3.5 mmol/L (3.5-5.1); Sodium 138 mmol/L (136-145)
[2024-03-28 08:10] LABS: Anion Gap 9 (5-15); Carbon Dioxide 26 mmol/L (20-31)
[2024-03-28 08:15] LABS: BUN/Creatinine Ratio 20.5 (10.0-20.0); Blood Urea Nitrogen 17 mg/dL (9-23); Glucose 102 mg/dL (74-106)
[2024-03-28 08:45] VITALS: BP 107/72; PULSE 72; RESP 18; TEMP 98; O2SAT 91
[2024-03-28 12:30] VITALS: BP 109/64; PULSE 77; RESP 18; TEMP 98.1; O2SAT 93
[2024-03-28] MEDS ORDERED: CEPH250C PO (14:14)
[2024-03-28 15:29] VITALS: BP 126/73; TEMP 36.7
== END 2024-03-28 16:25 | disposition home or self-care (01) | DRG 291 ==
LOC: ER 14:31 → OVERFLOW 19:44 → WEST WING 21:43
PROVIDERS: ADMIT Internal Medicine; ATTEND Internal Medicine
DX: I11.0 Hypertensive heart disease with heart failure (principal); I50.33 Acute on chronic diastolic (congestive) heart failure; N39.0 Urinary tract infection, site not specified; I27.82 Chronic pulmonary embolism; D68.59 Other primary thrombophilia; I48.20 Chronic atrial fibrillation, unspecified; E03.9 Hypothyroidism, unspecified; I25.10 Atherosclerotic heart disease of native coronary artery without angina pectoris; E78.5 Hyperlipidemia, unspecified; I49.5 Sick sinus syndrome; E11.40 Type 2 diabetes mellitus with diabetic neuropathy, unspecified; G89.29 Other chronic pain; M54.9 Dorsalgia, unspecified; I25.2 Old myocardial infarction; Z79.01 Long term (current) use of anticoagulants; Z79.2 Long term (current) use of antibiotics; Z79.899 Other long term (current) drug therapy; Z90.710 Acquired absence of both cervix and uterus; Z86.718 Personal history of other venous thrombosis and embolism
CPT/HCPCS: 36415; 71045; 80048; 81001; 82306; 82607; 83036; 83880; 84439; 84443; 84480; 84484; 85025; 85379; 87086; 87088; 87186; 93306; 93970; 93971; 96365; 99291; G0378

== ENCOUNTER → 2024-11-01 | Outpatient (CLI) | payer MEDICARE, MEDICAID ==
[~2024-11-01] MED LIST changes: -AUG875T PO; -BENZ100C97 PO; +CEPH250C PO; -FURO1TAB33 PO; -LATA0.008 RIGHTEYE; +LEVO100T8 PO; -LEVO112T2 PO; +MULT-733 OR; +POTA-180 PO; -POTA-215 PO
== END | disposition home or self-care (01) ==
LOC: Rad HDHVI 17:09
PROVIDERS: ATTEND Internal Medicine Cardiovascular Disease
DX: I11.0 Hypertensive heart disease with heart failure (principal); I50.9 Heart failure, unspecified
CPT/HCPCS: 93880

== ENCOUNTER 2024-11-08 12:44 | Outpatient (CLI) | payer MEDICARE, MEDICAID ==
[~2024-11-08] VITALS: Ht 160 cm; Wt 76.7 kg
[2024-11-08] MEDS ORDERED: ADENOSINE 90 MG/30 ML INJ IV ONE (13:11)
[2024-11-08] MEDS ORDERED: ADENOSINE 64 MG in GIVE UN-DILUTED 0 ML IV ONE (13:15)
== END 2024-11-08 17:00 | disposition home or self-care (01) ==
LOC: Rad HDHVI 12:44
PROVIDERS: ATTEND Internal Medicine Cardiovascular Disease
DX: I49.1 Atrial premature depolarization (principal); I25.10 Atherosclerotic heart disease of native coronary artery without angina pectoris; I11.0 Hypertensive heart disease with heart failure; I50.43 Acute on chronic combined systolic (congestive) and diastolic (congestive) heart failure; I48.20 Chronic atrial fibrillation, unspecified; I49.5 Sick sinus syndrome; I25.2 Old myocardial infarction; E78.00 Pure hypercholesterolemia, unspecified; R06.02 Shortness of breath; F17.210 Nicotine dependence, cigarettes, uncomplicated; Z95.0 Presence of cardiac pacemaker
CPT/HCPCS: 78452; 93017; A9500; J0153

== ENCOUNTER → 2024-11-09 | Outpatient (CLI) | payer MEDICARE, MEDICAID | END | disposition home or self-care (01) | LOC: Rad HDHVI 09:56 | PROVIDERS: ATTEND Internal Medicine Cardiovascular Disease | DX: I11.0 Hypertensive heart disease with heart failure (principal); I50.33 Acute on chronic diastolic (congestive) heart failure | CPT/HCPCS: 93306 ==

== ENCOUNTER 2025-05-12 23:43 | Inpatient (IN) | payer MEDICARE, MEDICAID ==
[~2025-05-12] VITALS: Ht 157.5 cm; Wt 71.4 kg
[2025-05-13 03:45] LABS: Hematocrit 44.8 % (36.0-46.0); Hemoglobin 15.3 g/dL (12.2-16.2); Mean Corpuscular Hemoglobin 32.0 pg (28.0-32.0); Mean Corpuscular Volume 93.4 fL (80.0-100.0); Nucleated Red Blood Cells % 0.1 %
[2025-05-13 04:05] LABS: Alanine Aminotransferase 24 U/L (7-40); Alkaline Phosphatase 72 U/L (46-116); Anion Gap 10 (5-15); Calcium 10.1 mg/dL (8.7-10.4); Carbon Dioxide 27 mmol/L (20-31); Chloride 104 mmol/L (98-107); Potassium 5.0 mmol/L (3.5-5.1); Sodium 141 mmol/L (136-145); Total Protein 7.8 g/dL (5.7-8.2)
[2025-05-13 04:06] LABS: Albumin 4.4 g/dL (3.2-4.8); BUN/Creatinine Ratio 30.9 (10.0-20.0); Bilirubin, Total 0.8 mg/dL (0.2-1.0)
[2025-05-13 04:07] LABS: Blood Urea Nitrogen 30 mg/dL (9-23); Creatine Kinase IFCC 27 U/L (34-145); Glucose 111 mg/dL (74-106)
--- NOTE | 2025-05-13 04:15 | ED.PDOC ---
HPI (NEURO) HPI Comments 85 y/o F is BIBA from private residence for c/c of syncope. Patient is a poor historian. She reports walking in her home when she, suddenly, felt hot and dizzy before passing out and waking up on the floor. Patient states on being unable to stand back up, due to history of chronic knee problems. She is on Eliquis, currently. Denies any further acute symptoms. BOULAIS: HPI: Poor Historian. 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 EARS: Denies acute: tinnitus, hearing loss, ear discharge, ear pain, THROAT: Denies acute: sore throat, swelling, difficulty swallowing , pain with swallowing, change in voice. NECK: Denies acute: neck pain, neck swelling, stiff neck. HEART: Denies acute : chest pain, palpitations, LUNGS: Denies acute: SOB, wheezing, cough, hemoptysis ABDOMEN: Denies acute: abdominal pain, Nausea, Vomiting, diarrhea, melena , hematemesis, hematochezia SKIN: Denies acute: rash, redness, lesions, itchiness. EXTREMITIES: Denies acute: calf pain, numbness, tingling, weakness, denies pain in extremity. Denies acute: Low back pain. Neuro: Denies acute: focal neurological deficit, motor or sensory focal neurological deficit, tremors, seizure like activity, confusion, , change in mental status, loss of bowel or bladder function, cauda equina like symptoms. : Denies acute: dysuria, hematuria, flank pain, increase in urinary frequency. PSYCH: Denies acute: hallucination, suicidal ideation, homicidal ideation. FEMALE: Denies acute: abnormal vaginal bleeding, foul odor, unusual discharge. PHYSICAL EXAM: General: ----no----acute distress, awake and alert. Head: normocephalic, atraumatic. No raccoon's eyes, no roberts sign. Neck: supple, trachea is midline, no swelling. Cervical spine: Palpation of the posterior midline of the cervical spine reveals no focal swelling, erythema, focal tenderness to palpation. Patient has normal range of motion. Throat: Normal phonation. Eyes:, no erythema, no purulent discharge, no proptosis, no icterus. Heart: regular rate, regular rhythm, no significant murmur appreciated. Lungs: no apparent respiratory distress, Able to speak in full sentences. No wheezing, no rhonchi, no crackles. No stridors Clear to auscultation bilaterally. Abdomen: non tender to palpation, non distended, soft, no guarding, no rebound, + bowel sounds. Neuro: Awake, Alert, oriented to name, self, situation, follows commands GCS=15. Speech is normal. Skin: no petechia, no purpura, no cyanosis, non-pale, not jaundice. Lower extremities: --2/4 b/l - Pitting edema no deformity, no focal swelling, no calf TTP. Makes eye contact. moves all four extremities. Face: no apparent facial droop. No nuchal rigidity, Kernig's sign, Brudzinski's sign, no meningeal signs. ED COURSE: DISCLAIMER: This medical document was created using an electronic medical record system with voice recognition software and computerized dictation system. Although this document has been carefully reviewed, there might still be some phonetic and typographical errors. Occasional wrong-word or "sound-alike" substitutions may have occurred due to the inherent limitations of voice recognition software. These areas are purely typographical due to imperfections of the software programs and do not reflect any compromise in the patient's medical care. Please read the chart carefully and recognize, using context, where these substitutions have occurred. Chief Complaint: Syncope Time Seen by MD: 03:19 Primary Care Provider: SERVANDO Lockwood Notes: Allergies Information Source: Patient Mode of Arrival: EMS Past Medical History PAST MEDICAL HISTORY: AFIB, CAD, CHF, CKF, DM, High Lipids, HTN, PA, PE, Thyroid Surgical History: Hysterectomy, Pacemaker DOUBLE CUT SAWYER History: No Pertinent DOUBLE CUT SAWYER History Family History Family History: Reviewed,noncontributory to illness Social History Smoker: Non-Smoker Alcohol: Denies ETOH Use Drugs: Denies Drug Use Lives In: Home Was a procedure done? Was a procedure done?: No Differential Diagnosis (SZ) Seizure: N/A General Weakness: Other (Anemia, CVA, dehydration, dysrhythmia, electrolyte imbalance, encephalopathy, Guillain-[place], hypoglycemia, hypotension, hypovolemia, Meniere's disease, myasthenia gravis, PA, pulmonary embolus, renal failure, respiratory failure, TIA, VPI, vertigo central, vertigo peripheral, vestibular neuronitis) X-Ray, Labs, Meds, VS Vital Signs Date Time Temp Pulse Resp B/P (MAP) Pulse Ox O2 Delivery O2 Flow Rate FiO2 05/13/25 06:39 98.4 82 18 109/65 (80) 95 98.4 05/13/25 00:09 97.8 92 16 116/64 94 97.8 Lab Test 05/13/25 06:45 05/13/25 05:42 05/13/25 05:41 05/13/25 03:33 Range/Units Prothrombin Time 11.1 9.3-11.8 sec Prothrombin Time INR 1.05 0.9-1.15 Activated Partial Thromboplast Time 29.8 24.5-34.5 SEC Sodium Level 141 141 136-145 mmol/L Potassium Level 4.6 5.0 3.5-5.1 mmol/L Chloride Level 104 104 98-107 mmol/L Carbon Dioxide Level 25 27 20-31 mmol/L Anion Gap 12 10 5-15 Blood Urea Nitrogen 34 H 30 H 9-23 mg/dL Creatinine 0.84 0.97 0.550-1.02 mg/dL Glomerular Filtration Rate Calc 68 58 >90 mL/min BUN/Creatinine Ratio 40.5 H 30.9 H 10.0-20.0 Serum Glucose 105 111 H 74-106 mg/dL Calcium Level 9.8 10.1 8.7-10.4 mg/dL Magnesium Level 2.2 1.6-2.6 mg/dL Total Bilirubin 0.7 0.8 0.2-1.0 mg/dL Aspartate Amino Transferase (AST) 30 32 13-40 U/L Alanine Aminotransferase (ALT) 25 24 7-40 U/L Alkaline Phosphatase 69 72 46-116 U/L Troponin I High Sensitivity 5 4 4 </=34 ng/L Total Protein 7.2 7.8 5.7-8.2 g/dL Albumin 4.2 4.4 3.2-4.8 g/dL Urine Color Light-yellow Yellow Urine Clarity Clear Clear Urine pH 6.0 5.0-9.0 Urine Specific [place] 1.023 1.001-1.035 Urine Protein Negative Negative Urine Ketones Negative Negative Urine Blood Negative Negative /uL Urine Nitrite Negative Negative Urine Bilirubin Negative Negative Urine Urobilinogen Normal Negative mg/dL Urine Leukocyte Esterase 1+ Negative /uL Urine RBC 16 0 - 4 /hpf Urine Microscopic WBC 15 H 0-5 /HPF Urine Squamous Epithelial Cells Few <5 /hpf Urine Bacteria Many H None Seen /hpf Urine Mucus Few None Seen Urine Yeast (Budding) Few None Seen /hpf Urine Glucose Normal Normal mg/dL Urine Opiates Screen Neg NEGATIVE Urine Fentanyl Screen Neg NEGATIVE Urine Barbiturates Screen Neg NEGATIVE Urine Phencyclidine Screen Neg NEGATIVE Urine Amphetamines Screen Neg NEGATIVE Urine Benzodiazepines Screen Neg NEGATIVE Urine Cocaine Screen Neg NEGATIVE Urine Cannabinoids Screen Neg NEGATIVE White Blood Count 6.4 4.4-10.8 10^3/uL Red Blood Count 4.80 4.0-5.20 10^6/uL Hemoglobin 15.3 12.2-16.2 g/dL Hematocrit 44.8 36.0-46.0 % Mean Corpuscular Volume 93.4 80.0-100.0 fL Mean Corpuscular Hemoglobin 32.0 28.0-32.0 pg Mean Corpuscular Hemoglobin Concent 34.2 32.0-36.0 g/dL Red Cell Distribution Width 12.9 11.8-14.3 % Platelet Count 140 140-450 10^3/uL Mean Platelet Volume 9.4 6.9-10.8 fL Neutrophils (%) (Auto) 53.7 37.0-80.0 % Lymphocytes (%) (Auto) 33.3 10.0-50.0 % Monocytes (%) (Auto) 9.8 0.0-12.0 % Eosinophils (%) (Auto) 2.5 0.0-7.0 % Basophils (%) (Auto) 0.7 0.0-2.0 % Neutrophils # (Auto) 3.4 1.6-8.6 10 ^3/uL Lymphocytes # (Auto) 2.1 0.4-5.4 10 ^3/uL Monocytes # (Auto) 0.6 0-1.3 10 ^3/uL Eosinophils # (Auto) 0.2 0-0.8 10 ^3/uL Basophils # (Auto) 0 0-0.2 10 ^3/uL Nucleated Red Blood Cells 0.1 % Hemoglobin A1c 5.8 H <5.7 % A1C Lactic Acid Level 0.9 0.4-2.0 mmol/L Creatine Kinase 27 L 34-145 U/L B-Type Natriuretic Peptide 20.91 0-100 pg/mL Vitamin B12 Level Pending Vitamin D 25-Hydroxy Pending Thyroid Stimulating Hormone (TSH) < 0.01 L 0.55-4.78 uIU/mL [place] [id number] Ph: [phone] DIAGNOSTIC IMAGING Diagnostic Imaging Report : [id number] Signed PATIENT: SWAPNIL HUMPHREY ACCT: [id number] UNIT: [id number] : 1940 LOC: ER ROOM / BED: / AGE / SEX: 85 / F ADM STATUS: REG ER SERVICE 0321 ORDERING PHYSICIAN: NICOLE SOLIS DO PROCEDURE(s): HWOCT - HEAD WITHOUT CONTRAST REASON: fall ORDER NUMBER(s): [id number], ACCESSION NUMBER(s): [id number] EXAM: CT HEAD WITHOUT CONTRAST INDICATION: fall TECHNIQUE: CT of the head without intravenous contrast. Radiation Dose Information: CT Dose: CTDI volume is 53.09 mGy. Dose-length product is 957.34 mGy*cm The dose indicators for CT are the volume Computed Tomography (CT) Dose Index (CTDIvol) and the Dose Length Product (DLP), and are measured in units of mGy and mGy-cm, respectively. These indicators are not patient dose, but values generated from the CT scanner acquisition factors. The report includes radiation exposure data for exposures received during this examination. COMPARISON: CT HEAD WITHOUT CONTRAST on DOS: 09/11/22 FINDINGS: There is no evidence of acute intracranial hemorrhage, extra-axial collection, mass effect, midline shift, herniation or hydrocephalus. The ventricles, sulci and cisterns are age appropriate with cerebral atrophy. The mckenna-white differentiation is intact. Patchy periventricular and subcortical white matter hypoattenuation is nonspecific but may be related to small vessel ischemic disease. The visualized paranasal sinuses and mastoid air cells are clear. The surrounding soft tissues and osseous structures are unremarkable. IMPRESSION: 1. No acute intracranial abnormality. ATED BY: BENJAMIN HYLTON MD DICTATED DATE/TIME: 05/13/25500 SIGNED BY: BENJAMIN HYLTNO MD SIGNED DATE/TIME: 05/13/25500 CC: [place] [address] Ph: [phone] DIAGNOSTIC IMAGING Diagnostic Imaging Report : [id number] Signed PATIENT: SWAPNIL HUMPHREY ACCT: [id number] UNIT: [id number] : 1940 LOC: ER ROOM / BED: / AGE / SEX: 85 / F ADM STATUS: REG ER SERVICE 0 ORDERING PHYSICIAN: NICOLE SOLIS DO PROCEDURE(s): CXRP - CHEST PORTABLE REASON: Syncope/fall ORDER NUMBER(s): [id number], ACCESSION NUMBER(s): [id number] CHEST RADIOGRAPH Indication: Syncope/fall Technique: Single frontal view of the chest was obtained Comparison: XY CHEST PORTABLE on DOS: 03/25/24, CHEST PORTABLE on DOS: 10/22/20 IMPRESSION: Heart appears stable in size with dual lead left cardiac device. Mild interstitial prominence. No focal airspace opacity, effusion, or pneumothorax. ATED BY: BENJAMIN HYLTON MD DICTATED DATE/TIME: 05/13/25499 SIGNED BY: BENJAMIN HYLTON SIGNED DATE/TIME: 05/13/25499 CC: Time of 1ST Reevaluation: 03:19 Reevaluation 1ST: Unchanged Patient Education/Counseling: Diagnosis, Treatment, Other (need for admission ) Family Education/Counseling: No Family Present Comments MDM: patient presented with the above HPI.---syncope and collapse---workup was initiated. patient was found with the above mentioned diagnosis. the following medications were ordered: please refer to order lists of meds and tests obtained by myself Dr. Solis. Patient ED course and VS have been stabilized. Patient has been reassessed in the ED and remained in a stable condition. Pertinent incidental findings were discussed with the patient and/or family. Patient/family voices understanding and is agreeable with plan. Patient has been observed in the ED adequate length of time to insure improvement/stability. Escalation of care considered: Consideration of escalation to observation or admission Patient is on blood thinners. CT scan imaging were obtained to rule out bleed. Patient was ADMITTED to the medicine team for further evaluation and treatment of their presentation. All the reports of any imaging studies that were ordered by myself were reviewed by myself. Departure 1 Departure Time of Disposition: 04:14 Impression: Primary Impression: Syncope and collapse Additional Impression: UTI (urinary tract infection) Disposition: ADMITTED INPATIENT Admit to: Tele Condition: Guarded Discharged With: Self Critical Care Note Critical Care Time?: No I personally scribed for NICOLE SOLIS DO ([email or web address]) on 05/13/25 at 05:01. Electronically submitted by Melvin Barrios ([email or web address]). I personally scribed for NICOLE SOLIS DO ([email or web address]) on 05/13/25 at 05:57. Electronically submitted by Melvin Barrios ([email or web address]). NICOLE SOLIS DO May 13, 2025 04:15
--- NOTE | 2025-05-13 05:01 | DVH ---
CHEST RADIOGRAPH Indication: Syncope/fall Technique: Single frontal view of the chest was obtained Comparison: XY CHEST PORTABLE on DOS: 03/25/24, CHEST PORTABLE on DOS: 10/22/20 IMPRESSION: Heart appears stable in size with dual lead left cardiac device. Mild interstitial prominence. No focal airspace opacity, effusion, or pneumothorax.
--- NOTE | 2025-05-13 05:01 | DVH ---
EXAM: CT HEAD WITHOUT CONTRAST INDICATION: fall TECHNIQUE: CT of the head without intravenous contrast. Radiation Dose Information: CT Dose: CTDI volume is 53.09 mGy. Dose-length product is 957.34 mGy*cm The dose indicators for CT are the volume Computed Tomography (CT) Dose Index (CTDIvol) and the Dose Length Product (DLP), and are measured in units of mGy and mGy-cm, respectively. These indicators are not patient dose, but values generated from the CT scanner acquisition factors. The report includes radiation exposure data for exposures received during this examination. COMPARISON: CT HEAD WITHOUT CONTRAST on DOS: 09/11/22 FINDINGS: There is no evidence of acute intracranial hemorrhage, extra-axial collection, mass effect, midline shift, herniation or hydrocephalus. The ventricles, sulci and cisterns are age appropriate with cerebral atrophy. The mckenna-white differentiation is intact. Patchy periventricular and subcortical white matter hypoattenuation is nonspecific but may be related to small vessel ischemic disease. The visualized paranasal sinuses and mastoid air cells are clear. The surrounding soft tissues and osseous structures are unremarkable. IMPRESSION: 1. No acute intracranial abnormality.
[2025-05-13 05:55] LABS: Urine Budding Yeast FEW /hpf (None Seen); Urine Protein, UAD Negative (Negative)
--- NOTE | 2025-05-13 07:29 | DVHHPRES ---
History of Present Illness Resident Creating Document: ADINA TORRES RESIDENT History of Present Illness 85-year-old female presents with the ER with a chief complaint of syncopal episode on 05/11. Patient reports walking in the house when she felt warmth all of a sudden, dizzy when she was trying to sit down when she passed out and fell, reports loss of consciousness and hitting her head. She does not know how long she was out for. Azul is a room in a house. Reports falling multiple times in the recent past. Also takes Eliquis. She says that nobody witnessed the event. Denies chest pain, fever, chills, shortness of breaths, urinary or abdominal symptoms. Recently seen in his facility for bilateral lower extremity swelling, likely diastolic heart failure Past medical history: Diastolic CHF, chronic PE/DVT, chronic AFib with hypercoagulable state, hypothyroidism, dyslipidemia, type 2 diabetes mellitus, UTIs Home medications: Levothyroxine 150 mcg, Eliquis 5 mg, furosemide 40 mg, spironolactone 25 mg, potassium tablets, calcium tablet, lovastatin 40 mg Social history: Rents a room. Denies smoking, drinking, drug use. Has a daughter in the area but is not in contact with her. Other a family in [place], [place] Patient seen and examined in ER. EKG pending. CT head unremarkable. Admitted for syncope. Review of Systems Constitutional: Yes: Weakness Allergies: Coded Allergies: NO KNOWN ALLERGIES (Unverified , 01/05/22) Exam Vital Signs Vital Signs Date Time Temp Pulse Resp B/P (MAP) Pulse Ox O2 Delivery O2 Flow Rate FiO2 05/13/25 06:39 98.4 82 18 109/65 (80) 95 98.4 General Appearance: Alert, Oriented X3, Cooperative, No acute distress HEENT: Atraumatic, Mucous membr. moist/pink Respiratory: Clear to auscultation, Normal air movement Cardiovascular: Regular rate, Normal S1, Normal S2 Abdominal: Normal bowel sounds, Soft, No tenderness Extremities: No edema Labs/Xrays Labs Test 05/13/25 06:45 05/13/25 05:41 05/13/25 03:33 Range/Units Urine Color Light-yellow Yellow Urine Clarity Clear Clear Urine pH 6.0 5.0-9.0 Urine Specific [place] 1.023 1.001-1.035 Urine Protein Negative Negative Urine Ketones Negative Negative Urine Blood Negative Negative /uL Urine Nitrite Negative Negative Urine Bilirubin Negative Negative Urine Urobilinogen Normal Negative mg/dL Urine Leukocyte Esterase 1+ Negative /uL Urine RBC 16 0 - 4 /hpf Urine Microscopic WBC 15 H 0-5 /HPF Urine Squamous Epithelial Cells Few <5 /hpf Urine Bacteria Many H None Seen /hpf Urine Mucus Few None Seen Urine Yeast (Budding) Few None Seen /hpf Urine Glucose Normal Normal mg/dL White Blood Count 6.4 4.4-10.8 10^3/uL Red Blood Count 4.80 4.0-5.20 10^6/uL Hemoglobin 15.3 12.2-16.2 g/dL Hematocrit 44.8 36.0-46.0 % Mean Corpuscular Volume 93.4 80.0-100.0 fL Mean Corpuscular Hemoglobin 32.0 28.0-32.0 pg Mean Corpuscular Hemoglobin Concent 34.2 32.0-36.0 g/dL Red Cell Distribution Width 12.9 11.8-14.3 % Platelet Count 140 140-450 10^3/uL Mean Platelet Volume 9.4 6.9-10.8 fL Neutrophils (%) (Auto) 53.7 37.0-80.0 % Lymphocytes (%) (Auto) 33.3 10.0-50.0 % Monocytes (%) (Auto) 9.8 0.0-12.0 % Eosinophils (%) (Auto) 2.5 0.0-7.0 % Basophils (%) (Auto) 0.7 0.0-2.0 % Neutrophils # (Auto) 3.4 1.6-8.6 10 ^3/uL Lymphocytes # (Auto) 2.1 0.4-5.4 10 ^3/uL Monocytes # (Auto) 0.6 0-1.3 10 ^3/uL Eosinophils # (Auto) 0.2 0-0.8 10 ^3/uL Basophils # (Auto) 0 0-0.2 10 ^3/uL Nucleated Red Blood Cells 0.1 % Sodium Level 141 136-145 mmol/L Potassium Level 5.0 3.5-5.1 mmol/L Chloride Level 104 98-107 mmol/L Carbon Dioxide Level 27 20-31 mmol/L Anion Gap 10 5-15 Blood Urea Nitrogen 30 H 9-23 mg/dL Creatinine 0.97 0.550-1.02 mg/dL Glomerular Filtration Rate Calc 58 >90 mL/min BUN/Creatinine Ratio 30.9 H 10.0-20.0 Serum Glucose 111 H 74-106 mg/dL Lactic Acid Level 0.9 0.4-2.0 mmol/L Calcium Level 10.1 8.7-10.4 mg/dL Total Bilirubin 0.8 0.2-1.0 mg/dL Aspartate Amino Transferase (AST) 32 13-40 U/L Alanine Aminotransferase (ALT) 24 7-40 U/L Alkaline Phosphatase 72 46-116 U/L Creatine Kinase 27 L 34-145 U/L B-Type Natriuretic Peptide 20.91 0-100 pg/mL Total Protein 7.8 5.7-8.2 g/dL Albumin 4.4 3.2-4.8 g/dL SEPSIS Sepsis Screen Date sepsis recognized/suspect: May 13, 2025 Time Sepsis recognized/suspect: 0013 Recent Procedure: No On Antibiotic Therapy: No Respiratory Rate >20: No Heart Rate >90: Yes Temp<36 C (96.8 F) or >38.3 C: No SBP <90 or MAP <65 mmHG: No New Acute Mental Status Change: No Is the patient on CPAP, BIPAP,: No Physician Orders Head Without Contrast (05/13/25 03:21) Video Rental Clerk (05/13/25 ) Chest Portable (05/13/25 03:21) Electrocardigram (05/13/25 03:21) Troponin-I Hs (05/13/25 06:21) Admit (05/13/25 07:20) Orthostatic Vital Signs (05/13/25 07:20) Complete Blood Count (05/13/25 07:20) Comprehensive Metabolic Panel (05/13/25 07:20) Magnesium (05/13/25 07:20) Vital Signs Date Time Temp Pulse Resp B/P (MAP) Pulse Ox O2 Delivery O2 Flow Rate FiO2 05/13/25 06:39 98.4 82 18 109/65 (80) 95 98.4 05/13/25 00:09 97.8 92 16 116/64 94 97.8 Laboratory Tests Test 05/13/25 03:33 Lactic Acid Level 0.9 mmol/L (0.4-2.0) White Blood Count 6.4 10^3/uL (4.4-10.8) Assessment/Plan Assessment/Plan Syncopal episode Repeated falls CT head unremarkable Carotid Doppler pending Orthostatic vitals pending Dr. Mercado consulted Chest x-ray, EKG, strict I&Os pending History of congestive heart failure-Likely diastolic-no exacerbation History of chronic PE/DVT Paroxysmal AFib with hypercoagulable state Tropes, BNP pending Continue Eliquis History of UTIs Monitor Hypothyroidism Continue levothyroxine 150 mcg Dyslipidemia Continue lovastatin 40 mg daily Plan discussed with patient in which all questions have been answered Called and informed Donna craig - patients ihss - per patient's request Admitted telemetry Case discussed with Dr. Malagon Plan discussed with: Patient My Orders Orders - ADINA TORRES Procedure Category Date Status Time Admit ADMIT 05/13/25 Verified 07:20 Orthostatic Vital ORDERS 05/13/25 Verified Signs 07:20 Complete Blood Count LAB 05/13/25 Verified 07:20 Comprehensive LAB 05/13/25 Verified Metabolic Panel 07:20 Magnesium LAB 05/13/25 Verified 07:20 Date of Service: May 13, 2025 Billing Provider: JAYA MALAGON MD Common Visit Codes: [id number] INP/OBS CARE (HIGH) ADINA TORRES May 13, 2025 07:29
[2025-05-13 08:10] LABS: Hematocrit 44.3 % (36.0-46.0); Hemoglobin 15.2 g/dL (12.2-16.2); Mean Corpuscular Hemoglobin 31.5 pg (28.0-32.0); Mean Corpuscular Volume 92.0 fL (80.0-100.0); Nucleated Red Blood Cells % 0.1 %
[2025-05-13 08:13] LABS: Alanine Aminotransferase 25 U/L (7-40); Albumin 4.2 g/dL (3.2-4.8); Alkaline Phosphatase 69 U/L (46-116); Anion Gap 12 (5-15); BUN/Creatinine Ratio 40.5 (10.0-20.0); Bilirubin, Total 0.7 mg/dL (0.2-1.0); Calcium 9.8 mg/dL (8.7-10.4); Carbon Dioxide 25 mmol/L (20-31); Chloride 104 mmol/L (98-107); Glucose 105 mg/dL (74-106); Potassium 4.6 mmol/L (3.5-5.1); Sodium 141 mmol/L (136-145); Total Protein 7.2 g/dL (5.7-8.2)
[2025-05-13 08:14] LABS: Blood Urea Nitrogen 34 mg/dL (9-23)
[2025-05-13 08:30] VITALS: PULSE 70; RESP 19; O2SAT 97
[2025-05-13 08:53] LABS: INR 1.05 (0.9-1.15); Partial Thromboplastin Time 29.8 SEC (24.5-34.5); Prothrombin Time 11.1 sec (9.3-11.8)
[2025-05-13] MEDS: APIXABAN 5 MG TAB PO SCH (10:43)
--- NOTE | 2025-05-13 11:01 | ECG ---
[facility] Test Date: 2025-05-13 Test Time: 11:00:26 Pat Name: SWAPNIL HUMPHREY Department: ED Room: [address] [place] [address] Gender: F [employer] Counselor: alpesh : 1940 Requested By: NICOLE SOLIS Order Number: [id number] Reading MD: Freddy Escobedo Measurements Intervals [place] Rate: 73 P: 0 VT: 142 QRS: 65 QRSD: 97 T: 68 QT: 405 QTc: 447 Interpretive Statements Atrial-paced complexes ST elevation, consider inferior injury Electronically Signed On 05-13-2025 14:47:01 PST by Freddy Escobedo Please click the below link to view image of tracing.
--- NOTE | 2025-05-13 11:10 | DVH ---
Carotid Duplex Date: 05/13/2025 10:47 AM Clinical History: Syncope Comparison: US CAROTID DUPLX W COLOR DOP on DOS: 11/01/24 Technique: Duplex Doppler evaluation of the extracranial carotid and vertebral arteries including color Doppler and spectral/pulsed waveform analysis was performed. Findings: PSV in the right CCA measures 67 cm/s. PSV in the right ICA measures 86 cm/s. The right ICA/CCA ratio is 1.3. PSV in the left CCA measures 86 cm/s. PSV in the left ICA measures 137 cm/s. The left ICA/CCA ratio is 1.6 Both vertebral arteries demonstrate antegrade flow within normal limits. IMPRESSION: 1. Mild increased velocity of the left ICA without significant atherosclerotic plaque. 2. No hemodynamic significant stenosis of the right carotid vasculature.
[2025-05-13 12:42] LABS: Amphetamine Screen, Urine Neg (NEGATIVE); Barbiturate Scree,Urine Neg (NEGATIVE); Benzodiazephine Screen, Urine Neg (NEGATIVE); Cannabinoid Screen, Urine Neg (NEGATIVE); Cocaine Screen, Urine Neg (NEGATIVE); Opiate Scree,Urine Neg (NEGATIVE); Phencyclidine Screen, Urine Neg (NEGATIVE)
[2025-05-13] MEDS: SODIUM CHLORIDE 0.9% 1,000 ML IV ONE (12:58)
--- NOTE | 2025-05-13 14:59 | DVHPNRES ---
Progress Note Date Seen: May 13, 2025 Resident Creating Document: ROSSANA CONTRERAS RESDIENT Medical Necessity Reason Pt with a Central, PICC or Fol: No Subjective Review of Systems 85-year-old female presents with the ER with a chief complaint of syncopal episode on 05/11. Patient reports walking in the house when she felt warmth all of a sudden, dizzy when she was trying to sit down when she passed out and fell, reports loss of consciousness and hitting her head. She does not know how long she was out for. [place] is a room in a house. Reports falling multiple times in the recent past. Also takes Eliquis. She says that nobody witnessed the event. Denies chest pain, fever, chills, shortness of breaths, urinary or abdominal symptoms. Recently seen in his facility for bilateral lower extremity swelling, likely diastolic heart failure Past medical history: Diastolic CHF, chronic PE/DVT, chronic AFib with hypercoagulable state, hypothyroidism, dyslipidemia, type 2 diabetes mellitus, UTIs Home medications: Levothyroxine 150 mcg, Eliquis 5 mg, furosemide 40 mg, spironolactone 25 mg, potassium tablets, calcium tablet, lovastatin 40 mg Social history: Rents a room. Denies smoking, drinking, drug use. Has a daughter in the area but is not in contact with her. Other a family in [place], [place] 05/13, the patient seen and examined at the bedside. Patient is feeling better since admission. Objective vital signs Vital Sign Date Time Temp Pulse Resp B/P (MAP) Pulse Ox O2 Delivery O2 Flow Rate FiO2 05/13/25 14:42 98.3 81 22 107/56 (73) 92 98.3 05/13/25 08:30 Room Air* 0 21 medications Current Medications Medications Dose Ordered Sig/Jeri Route Start Time Stop Time Status Last Admin Dose Admin Apixaban 5 mg BID PO 05/13/25 10:00 05/13/25 10:43 5 MG Levothyroxine Sodium 100 mcg QAM@0600 PO 05/14/25 06:00 Atorvastatin Calcium 10 mg HS PO 05/13/25 22:00 Levothyroxine Sodium 50 mcg QAM@0600 PO 05/14/25 06:00 Furosemide 20 mg DAILY PO 05/14/25 10:00 Ceftriaxone Sodium 50 ml @ 100 mls/hr DAILY@09 IV 05/14/25 09:00 Examination General Appearance: Alert, Oriented X3, Cooperative, No acute distress HEENT: Atraumatic, PERRLA, EOMI, Mucous membrane moist/pink Respiratory: Clear to auscultation, Normal air movement Cardiovascular: Regular rate, Normal S1, Normal S2, No murmurs, no chest wall tenderness Abdominal: Normal bowel sounds, Soft, No tenderness, No hepatospenomegaly, No masses Extremities: No clubbing, No cyanosis, No edema, Normal pulses, No tenderness/swelling Skin: No rashes, No breakdown, No significant lesion Neuro: Normal gait, Normal speech, Strength at 5/5 X4 ext, Normal tone, Sensation intact, Cranial nerves 3-12 NL, Reflexes 2+ Psych/Mental Status: Mental status NL, Mood NL laboratory and microbiology Laboratory Tests 05/13/25 07:40 05/13/25 06:45 Test 05/13/25 06:45 Range/Units Serum Glucose 105 74-106 mg/dL Labs and/or images reviewed: Labs reviewed by me, Image(s) reviewed by me Problem List/Assessment/Plan Problem List/Assessment/Plan Syncope, likely vasovagal/cardiogenic Recurrent fall Complicated UTI Hypothyroidism, overtreated History of pulmonary embolus/DVT History of paroxysmal AFib Dyslipidemia Diabetes type 2 Obesity * Urinalysis shows, UTI picture * TSH is <0.01 Plan/recommendation: * Empiric antibiotic Rocephin * Discontinue spironolactone, decreased dose of Lasix * IV fluid * Consulted cardiology * Recheck TSH * Device interrogation * Orthostatic vitals DIET: Cardiac diet DVT PROPHYLAXIS: On Eliquisdevi GI PROPHYLAXIS:: Protonix CODE STATUS: Goal of care discussed for more than 18 minutes, full code DISPOSITION: Telemetry Patient's status and plan discussed with the patient. Case discussed with Dr. Morales. Plan discussed with: Patient, Other (RN) My Orders My Orders Orders - ROSSANA CONTRERAS Procedure Category Date Status Time Urine Bacterial JUSTICE 05/13/25 In Process Culture 09:56 Sodium Chloride 0.9% PHA 05/13/25 In Process 12:45 Furosemide Tablet PHA 05/14/25 In Process (Lasix Tablet) 10:00 Ceftriaxone 1gm/50ml PHA 05/14/25 In Process (Rocephin) 09:00 Pt Request For Service PT 05/13/25 Logged 12:37 Date of Service: May 13, 2025 Billing Provider: LATOYA AVALOS MD Common Visit Codes: [id number] INP/OBS CARE(HIGH) ROSSANA CONTRERAS RESDIENT May 13, 2025 14:59
[2025-05-13 18:30] VITALS: BP 109/63; PULSE 72; RESP 18; TEMP 98.4; O2SAT 98
[2025-05-13 18:39] VITALS: PULSE 80; RESP 18
[2025-05-13 20:00] VITALS: PULSE 89
[2025-05-13] MEDS ORDERED: LEVO150T10 PO (20:05)
[2025-05-13] MEDS ORDERED: SPIR25TA8 PO (20:05)
[2025-05-13 21:00] VITALS: BP 110/69; PULSE 76; RESP 18; TEMP 98.2; O2SAT 94
[2025-05-13] MEDS: ATORVASTATIN 20 MG TAB PO SCH (21:36)
[2025-05-14] VITALS (8 sets, daily range): BP systolic 101–144; BP diastolic 51–80; PULSE 67–94; RESP 16–18; TEMP 97.7–98.8; O2SAT 93–96
[2025-05-14] MEDS: LEVOTHYROXINE SODIUM 50 MCG TAB PO SCH (06:24)
[2025-05-14] MEDS: LEVOTHYROXINE SODIUM 100 MCG TAB PO SCH (06:24)
[2025-05-14 06:58] LABS: Hematocrit 38.8 % (36.0-46.0); Hemoglobin 13.3 g/dL (12.2-16.2); Mean Corpuscular Hemoglobin 31.6 pg (28.0-32.0); Mean Corpuscular Volume 92.5 fL (80.0-100.0); Nucleated Red Blood Cells % 0.0 %
[2025-05-14 07:01] LABS: Alanine Aminotransferase 21 U/L (7-40); Albumin 3.6 g/dL (3.2-4.8); Alkaline Phosphatase 51 U/L (46-116); Anion Gap 9 (5-15); BUN/Creatinine Ratio 27.2 (10.0-20.0); Blood Urea Nitrogen 22 mg/dL (9-23); Carbon Dioxide 24 mmol/L (20-31); Glucose 91 mg/dL (74-106); Potassium 4.1 mmol/L (3.5-5.1); Sodium 141 mmol/L (136-145); Total Protein 6.3 g/dL (5.7-8.2)
[2025-05-14 07:02] LABS: Bilirubin, Total 0.9 mg/dL (0.2-1.0); Calcium 8.4 mg/dL (8.7-10.4); Chloride 108 mmol/L (98-107)
--- NOTE | 2025-05-14 11:19 | DVHPN2 ---
Progress Note - Dictate Date Seen: May 13, 2024 Medical Necessity Reason Pt with a Central, PICC or Fol: No Subjective PT WHILE WALKING SUDDEN ONSET OF DIZZINESS/ AND SHE HAD SYNCOPE CT NEGATIVE CAROTID NEGATIVE ECHO NEGATIVE PMH HX OF DVT/ PE AFIB HYPERCOAGULABLE STATE ECHO NL EF POOR ECHO WINDOWS DIABETES VASCULOPATHY NEPHROPATHY HYPOTHYROID vital signs Vital Sign Date Time Temp Pulse Resp B/P (MAP) Pulse Ox O2 Delivery O2 Flow Rate FiO2 05/14/25 09:00 97.9 67 18 110/51 (70) 93 97.9 05/13/25 20:00 Room Air* 0 21 Total Intake and Output 05/13/25 05/13/25 05/14/25 15:00 23:00 07:00 Intake Total 200 ml 75 ml 200 ml Balance 200 ml 75 ml 200 ml medications Current Medications Medications Dose Ordered Sig/Jeri Route Start Time Stop Time Status Last Admin Dose Admin Apixaban 5 mg BID PO 05/13/25 10:00 05/13/25 21:37 5 MG Levothyroxine Sodium 100 mcg QAM@0600 PO 05/14/25 06:00 05/14/25 06:24 100 MCG Atorvastatin Calcium 10 mg HS PO 05/13/25 22:00 05/13/25 21:36 10 MG Levothyroxine Sodium 50 mcg QAM@0600 PO 05/14/25 06:00 05/14/25 06:24 50 MCG Furosemide 20 mg DAILY PO 05/14/25 10:00 Ceftriaxone Sodium 50 ml @ 100 mls/hr DAILY@09 IV 05/14/25 09:00 laboratory and microbiology Laboratory Tests 05/14/25 06:13 Test 05/14/25 06:13 Range/Units Serum Glucose 91 74-106 mg/dL Problem List SUDDEN ONSET OF DIZZINESS/ AND SHE HAD SYNCOPE CT NEGATIVE CAROTID NEGATIVE ECHO NEGATIVE PMH HX OF DVT/ PE AFIB HYPERCOAGULABLE STATE ECHO NL EF POOR ECHO WINDOWS DIABETES VASCULOPATHY NEPHROPATHY HYPOTHYROID Assessment/Plan SX CONSISTENT WITH DYSRHYTHMIA CAROTID MASSAGE NEGATIVE ORTHOSTATIC BP NEGATIVE CONSIDER PPI INTERROGATION AMBULATE PT Plan discussed with: Patient RENEE QUINTANILLA MD May 14, 2025 11:19
--- NOTE | 2025-05-14 11:20 | DVHPN2 ---
Progress Note - Dictate Date Seen: May 14, 2025 Medical Necessity Reason Pt with a Central, PICC or Fol: No Subjective PT WHILE WALKING SUDDEN ONSET OF DIZZINESS/ AND SHE HAD SYNCOPE CT NEGATIVE CAROTID NEGATIVE ECHO NEGATIVE PMH HX OF DVT/ PE AFIB HYPERCOAGULABLE STATE ECHO NL EF POOR ECHO WINDOWS DIABETES VASCULOPATHY NEPHROPATHY HYPOTHYROID vital signs Vital Sign Date Time Temp Pulse Resp B/P (MAP) Pulse Ox O2 Delivery O2 Flow Rate FiO2 05/14/25 09:00 97.9 67 18 110/51 (70) 93 97.9 05/13/25 20:00 Room Air* 0 21 Total Intake and Output 05/13/25 05/13/25 05/14/25 15:00 23:00 07:00 Intake Total 200 ml 75 ml 200 ml Balance 200 ml 75 ml 200 ml medications Current Medications Medications Dose Ordered Sig/Jeri Route Start Time Stop Time Status Last Admin Dose Admin Apixaban 5 mg BID PO 05/13/25 10:00 05/13/25 21:37 5 MG Levothyroxine Sodium 100 mcg QAM@0600 PO 05/14/25 06:00 05/14/25 06:24 100 MCG Atorvastatin Calcium 10 mg HS PO 05/13/25 22:00 05/13/25 21:36 10 MG Levothyroxine Sodium 50 mcg QAM@0600 PO 05/14/25 06:00 05/14/25 06:24 50 MCG Furosemide 20 mg DAILY PO 05/14/25 10:00 Ceftriaxone Sodium 50 ml @ 100 mls/hr DAILY@09 IV 05/14/25 09:00 laboratory and microbiology Laboratory Tests 05/14/25 06:13 Test 05/14/25 06:13 Range/Units Serum Glucose 91 74-106 mg/dL Problem List SUDDEN ONSET OF DIZZINESS/ AND SHE HAD SYNCOPE CT NEGATIVE CAROTID NEGATIVE ECHO NEGATIVE PMH HX OF DVT/ PE AFIB HYPERCOAGULABLE STATE ECHO NL EF POOR ECHO WINDOWS DIABETES VASCULOPATHY NEPHROPATHY HYPOTHYROID Assessment/Plan SX CONSISTENT WITH DYSRHYTHMIA CAROTID MASSAGE NEGATIVE ORTHOSTATIC BP NEGATIVE PPI FUNCTION NORMAL AMBULATE WITH PT Plan discussed with: Patient RENEE QUINTANILLA MD May 14, 2025 11:20
[2025-05-14] MEDS: FUROSEMIDE 20 MG TAB PO SCH (11:26)
--- NOTE | 2025-05-14 14:12 | DVHPNRES ---
Progress Note Date Seen: May 14, 2025 Resident Creating Document: ROSSANA CONTRERAS RESDIENT Medical Necessity Reason Pt with a Central, PICC or Fol: No Subjective Review of Systems 85-year-old female presents with the ER with a chief complaint of syncopal episode on 05/11. Patient reports walking in the house when she felt warmth all of a sudden, dizzy when she was trying to sit down when she passed out and fell, reports loss of consciousness and hitting her head. She does not know how long she was out for. [place] is a room in a house. Reports falling multiple times in the recent past. Also takes Eliquis. She says that nobody witnessed the event. Denies chest pain, fever, chills, shortness of breaths, urinary or abdominal symptoms. Recently seen in his facility for bilateral lower extremity swelling, likely diastolic heart failure Past medical history: Diastolic CHF, chronic PE/DVT, chronic AFib with hypercoagulable state, hypothyroidism, dyslipidemia, type 2 diabetes mellitus, UTIs Home medications: Levothyroxine 150 mcg, Eliquis 5 mg, furosemide 40 mg, spironolactone 25 mg, potassium tablets, calcium tablet, lovastatin 40 mg Social history: Rents a room. Denies smoking, drinking, drug use. Has a daughter in the area but is not in contact with her. Other a family in [place], [place] 05/13, the patient seen and examined at the bedside. Patient is feeling better since admission. 04/13, patient seen and examined at the bedside. Patient is feeling better since admission does not have any active complaint. Objective vital signs Vital Sign Date Time Temp Pulse Resp B/P (MAP) Pulse Ox O2 Delivery O2 Flow Rate FiO2 05/14/25 11: 110/51 05/14/25 09:00 97.9 67 18 93 97.9 05/13/25 20:00 Room Air* 0 21 Total Intake and Output 05/13/25 05/13/25 05/14/25 15:00 23:00 07:00 Intake Total 200 ml 75 ml 200 ml Balance 200 ml 75 ml 200 ml medications Current Medications Medications Dose Ordered Sig/Jeri Route Start Time Stop Time Status Last Admin Dose Admin Apixaban 5 mg BID PO 05/13/25 10:00 05/14/25 11:26 5 MG Levothyroxine Sodium 100 mcg QAM@0600 PO 05/14/25 06:00 05/14/25 06:24 100 MCG Atorvastatin Calcium 10 mg HS PO 05/13/25 22:00 05/13/25 21:36 10 MG Levothyroxine Sodium 50 mcg QAM@0600 PO 05/14/25 06:00 05/14/25 06:24 50 MCG Furosemide 20 mg DAILY PO 05/14/25 10:00 05/14/25 11:26 20 MG Ceftriaxone Sodium 50 ml @ 100 mls/hr DAILY@09 IV 05/14/25 09:00 05/14/25 11:26 100 MLS/HR Examination General Appearance: Alert, Oriented X3, Cooperative, No acute distress HEENT: Atraumatic, PERRLA, EOMI, Mucous membrane moist/pink Respiratory: Clear to auscultation, Normal air movement Cardiovascular: Regular rate, Normal S1, Normal S2, No murmurs, no chest wall tenderness Abdominal: Normal bowel sounds, Soft, No tenderness, No hepatospenomegaly, No masses Extremities: No clubbing, No cyanosis, No edema, Normal pulses, No tenderness/swelling Skin: No rashes, No breakdown, No significant lesion Neuro: Normal gait, Normal speech, Strength at 5/5 X4 ext, Normal tone, Sensation intact, Cranial nerves 3-12 NL, Reflexes 2+ Psych/Mental Status: Mental status NL, Mood NL laboratory and microbiology Laboratory Tests 05/14/25 06:13 Test 05/14/25 06:13 Range/Units Serum Glucose 91 74-106 mg/dL Microbiology Date/Time Source Procedure Growth Status 05/13/25 05:41 Voided Urine Urine Culture - Preliminary Resulted Labs and/or images reviewed: Labs reviewed by me, Image(s) reviewed by me Problem List/Assessment/Plan Problem List/Assessment/Plan Syncope, likely vasovagal/cardiogenic Recurrent fall Complicated UTI Hypothyroidism, overtreated History of pulmonary embolus/DVT History of paroxysmal AFib Dyslipidemia Diabetes type 2 Obesity * Urinalysis shows, UTI picture * TSH is <0.01, same level on recheck * Device interrogation performed, normal * Orthostatic vitals normal Plan/recommendation: * Empiric antibiotic Rocephin * Discontinue spironolactone, decreased dose of Lasix * Decreased dose of levothyroxine * IV fluid * Consulted cardiology, recommended medical management * PT elevation performed, recommended for wheelchair DIET: Cardiac diet DVT PROPHYLAXIS: On Eliquis GI PROPHYLAXIS:: Protonix CODE STATUS: Goal of care discussed for more than 18 minutes, full code DISPOSITION: Telemetry Patient's status and plan discussed with the patient. Case discussed with Dr. Morales. Plan discussed with: Patient, Other (RN) Date of Service: May 14, 2025 Billing Provider: LATOYA AVALOS MD Common Visit Codes: [id number] INP/OBS CARE(HIGH) ROSSANA CONTRERAS MERGED WITH [facility] May 14, 2025 14:12
--- NOTE | 2025-05-14 16:16 | CONS ---
Pharmacy Clinical Information: From Heart Failure Fallout Report on CQM Application, Stacie Summer Vinson is an 85-year-old female with PMH of diastolic CHF, chronic PE/DVT, chronic AFib with hypercoagulable state, hypothyroidism, dyslipidemia, diabetes, UTIs SGLT2i not recommended at this time due to the patient having multiple UTIs [facility] May 14, 2025 16:16
[2025-05-15] VITALS (7 sets, daily range): BP systolic 99–118; BP diastolic 59–77; PULSE 65–79; RESP 16–18; TEMP 36.4; O2SAT 94–96
[2025-05-15 05:55] LABS: Hematocrit 36.8 % (36.0-46.0); Hemoglobin 12.7 g/dL (12.2-16.2); Mean Corpuscular Hemoglobin 31.9 pg (28.0-32.0); Mean Corpuscular Volume 92.3 fL (80.0-100.0); Nucleated Red Blood Cells % 0.1 %
[2025-05-15 06:10] LABS: Alanine Aminotransferase 20 U/L (7-40); Albumin 3.5 g/dL (3.2-4.8); Alkaline Phosphatase 47 U/L (46-116); Anion Gap 8 (5-15); BUN/Creatinine Ratio 28.6 (10.0-20.0); Bilirubin, Total 0.9 mg/dL (0.2-1.0); Blood Urea Nitrogen 20 mg/dL (9-23); Carbon Dioxide 24 mmol/L (20-31); Glucose 87 mg/dL (74-106); Potassium 3.9 mmol/L (3.5-5.1); Sodium 141 mmol/L (136-145); Total Protein 6.1 g/dL (5.7-8.2)
[2025-05-15] MEDS: LEVOTHYROXINE SODIUM 100 MCG TAB PO SCH (06:16)
[2025-05-15] MEDS: LEVOTHYROXINE SODIUM 25 MCG TAB PO SCH (06:16)
[2025-05-15 06:18] LABS: Calcium 8.5 mg/dL (8.7-10.4); Chloride 109 mmol/L (98-107)
--- NOTE | 2025-05-15 13:01 | DVHPN2 ---
Progress Note - Dictate Date Seen: May 15, 2015 Medical Necessity Reason Pt with a Central, PICC or Fol: No Subjective PT WHILE WALKING SUDDEN ONSET OF DIZZINESS/ AND SHE HAD SYNCOPE CT NEGATIVE CAROTID NEGATIVE ECHO NEGATIVE PMH HX OF DVT/ PE AFIB HYPERCOAGULABLE STATE ECHO NL EF POOR ECHO WINDOWS DIABETES VASCULOPATHY NEPHROPATHY HYPOTHYROID vital signs Vital Sign Date Time Temp Pulse Resp B/P (MAP) Pulse Ox O2 Delivery O2 Flow Rate FiO2 05/15/25 10:09 112/77 05/15/25 09:00 97.9 68 16 95 97.9 05/15/25 08:00 Room Air* 0 21 Total Intake and Output 05/14/25 05/14/25 05/15/25 15:00 23:00 07:00 Intake Total 1000 ml 500 ml Balance 1000 ml 500 ml medications Current Medications Medications Dose Ordered Sig/Jeri Route Start Time Stop Time Status Last Admin Dose Admin Apixaban 5 mg BID PO 05/13/25 10:00 05/15/25 10:08 5 MG Atorvastatin Calcium 10 mg HS PO 05/13/25 22:00 05/14/25 21:25 10 MG Furosemide 20 mg DAILY PO 05/14/25 10:00 05/15/25 10:09 20 MG Ceftriaxone Sodium 50 ml @ 100 mls/hr DAILY@09 IV 05/14/25 09:00 05/15/25 10:08 100 MLS/HR Levothyroxine Sodium 100 mcg QAM@0600 PO 05/15/25 06:00 05/15/25 06:16 100 MCG Levothyroxine Sodium 25 mcg QAM@0600 PO 05/15/25 06:00 05/15/25 06:16 25 MCG laboratory and microbiology Laboratory Tests 05/15/25 05:20 Test 05/15/25 05:20 Range/Units Serum Glucose 87 74-106 mg/dL Problem List SUDDEN ONSET OF DIZZINESS/ AND SHE HAD SYNCOPE CT NEGATIVE CAROTID NEGATIVE ECHO NEGATIVE PMH HX OF DVT/ PE AFIB HYPERCOAGULABLE STATE ECHO NL EF POOR ECHO WINDOWS DIABETES VASCULOPATHY NEPHROPATHY HYPOTHYROID Assessment/Plan SX CONSISTENT WITH DYSRHYTHMIA CAROTID MASSAGE NEGATIVE ORTHOSTATIC BP NEGATIVE PPI FUNCTION NORMAL AMBULATE WITH PT MAY DC HOME Dietary Evaluation Review Comments: Monitor PO intake, lab values, weight trend, and I/O Expected Outcomes/Goals: GI symptoms to improve FU 3-5 days Plan discussed with: Patient ARMIGUELSALAM,RENEE MD May 15, 2025 13:01
--- NOTE | 2025-05-15 17:00 | DVHDSRES ---
Discharge Summary Date of Admission Resident Creating Document: ROSSANA CONTRERAS May 13, 2025 at 07:20 Date of Discharge: May 15, 2025 Labs/Diagnostic Data: Laboratory Results Test 05/15/25 05:20 05/13/25 15:20 05/13/25 06:45 05/13/25 05:41 White Blood Count 5.7 10^3/uL (4.4-10.8) Red Blood Count 3.98 10^6/uL (4.0-5.20) Hemoglobin 12.7 g/dL (12.2-16.2) Hematocrit 36.8 % (36.0-46.0) Mean Corpuscular Volume 92.3 fL (80.0-100.0) Mean Corpuscular Hemoglobin 31.9 pg (28.0-32.0) Mean Corpuscular Hemoglobin Concent 34.5 g/dL (32.0-36.0) Red Cell Distribution Width 12.6 % (11.8-14.3) Platelet Count 110 10^3/uL (140-450) Mean Platelet Volume 9.6 fL (6.9-10.8) Neutrophils (%) (Auto) 50.0 % (37.0-80.0) Lymphocytes (%) (Auto) 36.6 % (10.0-50.0) Monocytes (%) (Auto) 9.1 % (0.0-12.0) Eosinophils (%) (Auto) 3.4 % (0.0-7.0) Basophils (%) (Auto) 0.9 % (0.0-2.0) Neutrophils # (Auto) 2.8 10 ^3/uL (1.6-8.6) Lymphocytes # (Auto) 2.1 10 ^3/uL (0.4-5.4) Monocytes # (Auto) 0.5 10 ^3/uL (0-1.3) Eosinophils # (Auto) 0.2 10 ^3/uL (0-0.8) Basophils # (Auto) 0.1 10 ^3/uL (0-0.2) Nucleated Red Blood Cells 0.1 % Sodium Level 141 mmol/L (136-145) Potassium Level 3.9 mmol/L (3.5-5.1) Chloride Level 109 mmol/L (98-107) Carbon Dioxide Level 24 mmol/L (20-31) Anion Gap 8 (5-15) Blood Urea Nitrogen 20 mg/dL (9-23) Creatinine 0.70 mg/dL (0.550-1.02) Glomerular Filtration Rate Calc 85 mL/min (>90) BUN/Creatinine Ratio 28.6 (10.0-20.0) Serum Glucose 87 mg/dL (74-106) Calcium Level 8.5 mg/dL (8.7-10.4) Total Bilirubin 0.9 mg/dL (0.2-1.0) Aspartate Amino Transferase (AST) 25 U/L (13-40) Alanine Aminotransferase (ALT) 20 U/L (7-40) Alkaline Phosphatase 47 U/L (46-116) Total Protein 6.1 g/dL (5.7-8.2) Albumin 3.5 g/dL (3.2-4.8) Thyroid Stimulating Hormone (TSH) 0.01 uIU/mL (0.55-4.78) Prothrombin Time 11.1 sec (9.3-11.8) Prothrombin Time INR 1.05 (0.9-1.15) Activated Partial Thromboplast Time 29.8 SEC (24.5-34.5) Magnesium Level 2.2 mg/dL (1.6-2.6) Troponin I High Sensitivity 5 ng/L (</=34) Urine Color Light-yellow (Yellow) Urine Clarity Clear (Clear) Urine pH 6.0 (5.0-9.0) Urine Specific [place] 1.023 (1.001-1.035) Urine Protein Negative (Negative) Urine Ketones Negative (Negative) Urine Blood Negative /uL (Negative) Urine Nitrite Negative (Negative) Urine Bilirubin Negative (Negative) Urine Urobilinogen Normal mg/dL (Negative) Urine Leukocyte Esterase 1+ /uL (Negative) Urine RBC 16 /hpf (0 - 4) Urine Microscopic WBC 15 /HPF (0-5) Urine Squamous Epithelial Cells Few /hpf (<5) Urine Bacteria Many /hpf (None Seen) Urine Mucus Few (None Seen) Urine Yeast (Budding) Few /hpf (None Seen) Urine Glucose Normal mg/dL (Normal) Urine Opiates Screen Neg (NEGATIVE) Urine Fentanyl Screen Neg (NEGATIVE) Urine Barbiturates Screen Neg (NEGATIVE) Urine Phencyclidine Screen Neg (NEGATIVE) Urine Amphetamines Screen Neg (NEGATIVE) Urine Benzodiazepines Screen Neg (NEGATIVE) Urine Cocaine Screen Neg (NEGATIVE) Urine Cannabinoids Screen Neg (NEGATIVE) Test 05/13/25 03:33 Hemoglobin A1c 5.8 % A1C (<5.7) Lactic Acid Level 0.9 mmol/L (0.4-2.0) Creatine Kinase 27 U/L (34-145) B-Type Natriuretic Peptide 20.91 pg/mL (0-100) Vitamin B12 Level 694 pg/mL (211-911) Vitamin D 25-Hydroxy 68.2 ng/mL (30.0-100) Other Laboratory Tests 05/15/25 05:20 Brief Hx & Hospital Course: HISTORY OF PRESENT ILLNESS: 85-year-old female presents with the ER with a chief complaint of syncopal episode on 05/11. Patient reports walking in the house when she felt warmth all of a sudden, dizzy when she was trying to sit down when she passed out and fell, reports loss of consciousness and hitting her head. She does not know how long she was out for. [place] is a room in a house. Reports falling multiple times in the recent past. Also takes Eliquis. She says that nobody witnessed the event. Denies chest pain, fever, chills, shortness of breaths, urinary or abdominal symptoms. Recently seen in his facility for bilateral lower extremity swelling, likely diastolic heart failure Past medical history: Diastolic CHF, chronic PE/DVT, chronic AFib with hypercoagulable state, hypothyroidism, dyslipidemia, type 2 diabetes mellitus, UTIs Home medications: Levothyroxine 150 mcg, Eliquis 5 mg, furosemide 40 mg, spironolactone 25 mg, potassium tablets, calcium tablet, lovastatin 40 mg Social history: Rents a room. Denies smoking, drinking, drug use. Has a daughter in the area but is not in contact with her. Other a family in [facility] COURSE: Patient was admitted to the hospital due to syncope possibly due to polypharmacy. Head CT scan performed, showed no significant intracranial abnormalities. EKGs performed, showed normal sinus rhythm with no significant ST or T-wave changes. Pacemaker device interrogation performed, showed no significant abnormalities. Patient was clinically looks dry, possibly due to overuse of diuretic. Carotid Doppler performed, showed no significant stenosis. During hospital course the patient was given IV fluid, stopped Lasix and spironolactone. Home medication including levothyroxine was continued. TSH checked, showed less than 0.01, and levothyroxine dose was decreased to 125 mEq. Cardiology consulted, recommended medical management. Physical therapy evaluation performed, recommended wheelchair for mobility. The during hospital course home medication were continued. On 05/15, the patient was feeling better, patient had no symptoms. Patient was able to ambulate with no dizziness or imbalance. Discharge plan discussed with the patient and the patient discharged home. DISCHARGE PLAN: Follow up with the PCP within 1 week of the discharge. Follow up with the Cardiology on outpatient basis. Follow up with the discharge Clinic within 1 week of the discharge. Discontinue Lasix Continue spironolactone Take Lasix tablet as needed daily 40 mg, if noticed pedal swelling FINAL DIAGNOSIS: Syncope, likely vasovagal/cardiogenic Recurrent fall Complicated UTI Hypothyroidism, overtreated History of pulmonary embolus/DVT History of paroxysmal AFib Dyslipidemia Diabetes type 2 Obesity Condition at Discharge: Good Final Diagnosis/Problems List Syncope, likely vasovagal/cardiogenic Recurrent fall Complicated UTI Hypothyroidism, overtreated History of pulmonary embolus/DVT History of paroxysmal AFib Dyslipidemia Diabetes type 2 Obesity Discharge Disposition: Home Discharge Instruct/Medications Diet: Cardiac 2g Na,low cholest Activity: No Restrictions, As Tolerated Follow Up/Referral: Follow up with the PCP within 1 week of the discharge. Follow up with the Cardiology on outpatient basis. Follow up with the discharge Clinic within 1 week of the discharge. Medications: Discontinue Lasix Take Lasix 40 mg daily as needed (if legs swollen) Continue rest of home meds Scheduled Apixaban Base (Eliquis), 5 MG PO BID, (Reported) Calcium Carbonate-Vitamin D (Calcium 500 + D), 1 TAB PO DAILY, (Reported) Cephalexin (Keflex Capsule), 2 CAP PO BID Cholecalciferol (Vitamin D3), 1 TAB PO DAILY, (Reported) Denosumab (Prolia), Unknown Dose SC [id number], (Reported) Furosemide (Furosemide), 1 TAB PO DAILY, (Reported) Levothyroxine Sodium (Levothyroxine Sodium), 100 MCG PO DAILY, (Reported) Levothyroxine Sodium (Levothyroxine Sodium), 1 TAB PO DAILY, (Reported) Lovastatin (Lovastatin), 1 TAB PO HS, (Reported) Multiple Vitamins W/ Minerals (Centrum Silver), 1 OR DAILY, (Reported) Potassium Chloride (Potassium Chloride ER), 20 MEQ PO DAILY, (Reported) Spironolactone (Spironolactone), 1 TAB PO DAILY, (Reported) Zinc Oxide (Topical) (Desitin), Unknown Dose EX PRN, (Reported) Discharge Statement: "Patient was advised to return to the ER or call 911 if any headaches, dizziness, shortness of breath, chest pain, abdominal pain, bleeding, fevers, or worsening of medical condition. Patient was counseled about treatment plan, medications, possible side effects, patientverbalized understanding. All questions were answered to the best of my ability. This discharge took greater then 30 minutes in planning, reviewing documentation, counseling the patient, and discussing with other team members." DME: Diagnosis: History of recurrent fall, needs Wheelchair ASSESSMENT ASSESSMENT Assessment Syncope Date of Service: May 15, 2025 Billing Provider: LATOYA AVALOS MD Common Visit Codes: [id number] DISCH DAY >30min ROSSANA CONTRERAS RESDIENT May 15, 2025 17:00 LATOYA AVALOS MD May 21, 2025 09:53
== END 2025-05-15 16:45 | disposition home or self-care (01) | DRG 74 ==
LOC: ER 23:43 → EDBD 23:43 → OVERFLOW 05-13 07:20 → TELE-EAST 05-13 18:03
PROVIDERS: ADMIT Student in an Organized Health Care Education/Training Program; ATTEND Student in an Organized Health Care Education/Training Program
PROC: 4B02XSZ Measurement of Cardiac Pacemaker, External Approach (ICD-10-PCS; principal; 2025-05-14)
DX: G90.89 Other disorders of autonomic nervous system (principal); I50.42 Chronic combined systolic (congestive) and diastolic (congestive) heart failure; I13.0 Hypertensive heart and chronic kidney disease with heart failure and stage 1 through stage 4 chronic kidney disease, or unspecified chronic kidney disease; E03.9 Hypothyroidism, unspecified; N39.0 Urinary tract infection, site not specified; E11.22 Type 2 diabetes mellitus with diabetic chronic kidney disease; E66.9 Obesity, unspecified; N18.9 Chronic kidney disease, unspecified; I48.20 Chronic atrial fibrillation, unspecified; I48.0 Paroxysmal atrial fibrillation; E11.40 Type 2 diabetes mellitus with diabetic neuropathy, unspecified; E78.5 Hyperlipidemia, unspecified; I25.10 Atherosclerotic heart disease of native coronary artery without angina pectoris; I25.2 Old myocardial infarction; Z86.718 Personal history of other venous thrombosis and embolism; Z90.710 Acquired absence of both cervix and uterus; Z86.711 Personal history of pulmonary embolism; Z68.28 Body mass index [BMI] 28.0-28.9, adult
CPT/HCPCS: 36415; 70450; 71045; 80053; 80307; 81001; 82306; 82550; 82607; 83036; 83605; 83735; 83880; 84443; 84484; 85025; 85610; 85730; 87086; 93005; 93886; 97163; G0378